=== PATIENT | male | born 1965 ===

== ENCOUNTER 2023-11-02 18:30 | Inpatient (IN) | payer BC, SELFPAY ==
--- NOTE | ~2023-11-02 | XR_ITS ---
EXAMINATION: XR CHEST CLINICAL INFORMATION: Hypoxia. COMPARISON: None available. TECHNIQUE: Frontal view of the chest was obtained. FINDINGS: Patchy airspace opacities in the left lung base with diffuse interstitial thickening. No pleural effusion or pneumothorax. Normal heart size. No acute osseous findings. XR/XR chest 1V IMPRESSION: Findings are most suggestive of an atypical infectious/inflammatory process with infiltrates in the left lung base. Recommend short-term follow-up.
--- NOTE | ~2023-11-02 | CT_ITS ---
EXAMINATION: CT ANGIOGRAM OF THE CHEST WITH AND WITHOUT CONTRAST (CT PULMONARY ANGIOGRAM FOR PE) CLINICAL INFORMATION: Reason for Exam Acute hypoxic COMPARISON: Chest x-ray from earlier the same day TECHNIQUE: Prior to contrast administration, noncontrast localization images were obtained. Subsequently, multidetector volumetric imaging was performed from the thoracic inlet to below the diaphragms following the administration of 65 mL Omnipaque 350 intravenous contrast. No contrast reaction reported Sagittal, coronal, and MIP oblique sagittal reformatted images were obtained on the CT workstation, uploaded to PACS, and reviewed. This CT examination was performed using dose optimization techniques as appropriate, variously including the following: *Automated exposure control *Adjustment of mA and/or kV according to patient size (this includes techniques or standardized protocols for targeted exams where dose is matched to indication/reason for exam; i.e. extremities or head) *Use of iterative reconstruction technique Total exam dose-length product 376 mGy-cm FINDINGS: QUALITY OF STUDY/CONTRAST BOLUS: Satisfactory. PULMONARY ARTERIES: No pulmonary emboli. THORACIC AORTA: No aneurysm. LUNG: Mild bronchial wall thickening, increased peribronchial attenuation, and nodular opacities seen throughout the lungs greatest at the lung bases. There is larger denser consolidation in the lower lobe. This probably represents bronchopneumonia. PLEURA: No pleural effusion or pneumothorax. MEDIASTINUM: Normal heart size. No pericardial effusion. [place] bilateral hilar and mediastinal lymphadenopathy. No enlarged hilar or mediastinal lymphadenopathy. No evidence of septal bowing or right heart strain. CORONARY ARTERY CALCIFICATION: Present but difficult to quantify due to motion artifact. CHEST WALL/AXILLA: No axillary or internal mammary lymphadenopathy. OSSEOUS STRUCTURES: No acute or suspicious osseous abnormality. UPPER ABDOMEN: Unremarkable. No reflux of contrast into the hepatic veins to suggest elevated right heart pressures. CT/CT angio chest PE protocol IMPRESSION: No evidence of pulmonary embolus. Bronchopneumonia, greatest in the left lower lobe. VTE: negative
[2023-11-02 18:35] VITALS: BP 139/62; PULSE 100; RESP 16; TEMP 37; O2SAT 89; BMI 27.9
--- NOTE | 2023-11-02 18:39 | ED.URI ---
HPI - URI/Sore Throat General Chief Complaint: Dyspnea Stated Complaint: fever, low o2 sat seen at UC Time Seen by Provider: 11/02/23 18:50 Source: patient Mode of arrival: ambulatory Limitations: no limitations History of Present Illness HPI Narrative: Patient history of hypertension coronary artery disease status post stents stent placement smoker quit smoking a month ago since then been coughing seen at Urgent care about 10 days ago prescribed inhaler COVID and flu was negative patient continued to cough went again noticed to be saturating 88% at room air patient coughing a lot in the nighttime denied any leg swelling or chest pain also patient had fever of 102 at home on arrival patient is saturating 89% at room air Related Data Home Medications Medication Instructions Recorded Confirmed aspirin 81 mg capsule 81 mg PO DAILY 11/03/23 11/03/23 atorvastatin 40 mg tablet 40 mg PO DAILY 11/03/23 11/03/23 lisinopril 10 mg tablet 10 mg PO DAILY 11/03/23 11/03/23 Previous Rx's Medication Instructions Recorded azithromycin 250 mg tablet 250 mg PO DAILY 4 days #4 tabs 11/04/23 benzonatate 100 mg capsule 100 mg PO TID PRN cough #20 caps 11/04/23 cefuroxime axetil 500 mg tablet 500 mg PO Q12H 6 days #12 tabs 11/04/23 Allergies Allergy/AdvReac Type Severity Reaction Status Date / Time No Known Allergies Allergy Verified 11/02/23 18:40 Review of Systems Review of Systems: Yes all other systems are reviewed and are negative PMFSH Past Medical History Medical History Hyperlipidemia CAD (coronary artery disease) Essential hypertension Social History Social History Household Members: Spouse Housing: House Do you presently have visiting nurse or other home services: No Patient Tobacco Use Status: Former Tobacco user Tobacco use type: Cigarette Smoked in Last 30 Days: Yes Patient Interested in Nicotine Replacement: No Patient Given Instructions on How to Stop Smoking: Yes Date Education Initiated: 11/03/23 Use of substances other than those prescribed or required for medical reasons: No Currently Displaying Signs/Symptoms of Drug Intoxication Withdrawal: No Advance Directives: No Advance Directives Information Provided: No Do you have thoughts of harming others: None Do you have a plan to hurt others: No Plan Recently lost weight without trying: No Nutrition Risks: No Nutritional Risk service: No Physical Exam Vital Signs: Vital Signs: Last Vital Signs Temp 97.9 F 11/04/23 07:24 Pulse 73 11/04/23 07:24 Resp 20 11/04/23 07:24 BP 99/66 11/04/23 07:24 Pulse Ox 91 L 11/04/23 07:24 O2 Del Method Room Air 11/04/23 07:24 O2 Flow Rate 3 11/03/23 07:35 BMI result Body Mass Index 27.9 Appearance: Alert. Oriented X3. No acute distress. Eyes: PERRLA, No Nystagmus ENT: Pharynx normal. Oral Mucosa moist Neck: Normal inspection. Neck supple. CVS: Normal heart rate and rhythm. Pulses normal. Respiratory: No respiratory distress. Equal air entry bilateral, bilateral prolonged expiration no rales Abdomen: Soft and nontender. Bowel sounds are present, no mass palpable, no CVA tenderness Skin: Skin warm and dry. Normal skin color. Normal skin turgor. Extremities: No lower extremity edema. No calf tenderness Neuro: Oriented X 3. No motor deficit. Course Course Course Narrative: This is a rapid medical exam: Additional HPI, ROS, PE not included below will be deferred to primary provider. From urgent care with concerns for hypoxia. SpO2 88% at urgent care. Pt reports that he recently quit smoking and is feeling better today compared to yesterday. Medications Administered Discontinued Medications Generic Name Dose Route Start Last Admin Trade Name Hilarioq PRN Reason Stop Dose Admin Albuterol Sulfate 5 mg 11/02/23 22:59 11/02/23 23:15 Albuterol Sulfate (0.083%) 2.5 Mg/3 Ml Vial.Neb INHALE 11/02/23 23:00 5 mg ONCE ONE Administration Albuterol/Ipratropium 3 ml 11/02/23 19:10 11/02/23 19:17 Albuterol/Iprat 2.5/0.5mg 3 Ml Ampul.Neb INHALE 11/02/23 19:11 3 ml ONCE ONE Administration Aspirin 81 mg 11/03/23 09:00 11/04/23 07:59 Aspirin Enteric Coated 81 Mg Tablet. PO 81 mg DAILY MIAN Administration Atorvastatin Calcium 40 mg 11/03/23 09:00 11/04/23 07:58 Atorvastatin Calcium 40 Mg Tablet PO 40 mg DAILY MIAN Administration Guaifenesin/Dextromethorphan 2 tab 11/03/23 09:00 11/04/23 07:58 Guaifenesin Dm 600/30 1 Tab Tab.Er.12h PO 2 tab BID MIAN Administration Heparin Sodium (Porcine) 5,000 unit 11/03/23 06:00 11/04/23 04:58 Heparin Sodium,Porcine 5,000 Unit/Ml Vial SUBCUT Not Given Q8H MIAN Ceftriaxone Sodium 1 gm/ 50 mls @ 100 mls/hr 11/02/23 20:54 11/02/23 21:50 Sodium Chloride IV 11/02/23 21:23 Infused ONCE ONE Infusion Azithromycin 500 mg/ Sodium 250 mls @ 125 mls/hr 11/02/23 22:59 11/03/23 01:20 Chloride IV 11/03/23 00:58 Infused ONCE ONE Infusion Azithromycin 500 mg/ Sodium 250 mls @ 125 mls/hr 11/03/23 21:00 11/03/23 23:05 Chloride IV Infused Q24H MIAN Infusion Ceftriaxone Sodium 1 gm/ 50 mls @ 100 mls/hr 11/03/23 20:00 11/03/23 21:00 Sodium Chloride IV Infused Q24H MIAN Infusion Iohexol 100 ml 11/02/23 21:45 11/02/23 21:46 Iohexol 350 Mg/Ml 100 Ml Infus..Btl IV 11/02/23 21:46 65 ml ONCE ONE Administration Lisinopril 10 mg 11/03/23 09:00 11/04/23 07:58 Lisinopril 10 Mg Tablet PO 10 mg DAILY MIAN Administration Protocol Sodium Chloride 3 ml 11/03/23 00:00 11/04/23 08:00 0.9 % Sodium Chloride Flush 3 Ml Syringe IVFLUSH 3 ml QSHIFT MIAN Administration Medical Decision Making Medical Decision Making [facility] Narrative: Patient chronic smoker with significant hypoxia and cough CTA negative for PE showed bilateral bronchopneumonia will admit patient for hypoxia and IV antibiotics Differential Diagnosis Differential Diagnoses: The differential diagnosis associated with the presentation includes Pulmonary embolism/pneumonia/pneumothorax/atypical pneumonia Admission/Observation Consideration of admission/observation: Escalation of care including admission/observation considered Consult Healthcare Provider Management of the patient was discussed with: Hospitalist Lab Data MDM Lab Attestation statement: I reviewed the patient's lab results. 11/03/23 10:48 11/03/23 10:48 Labs: Lab Results 11/02/23 11/02/23 Range/Units 19:12 19:13 WBC 18.6 H (4.8-10.8) X10*3/uL RBC 4.04 L (4.60-5.80) X10*6/uL Hgb 12.5 L (14.0-18.0) g/dl Hct 36.5 L (42.0-52.0) % MCV 90.3 (80.0-98.0) fL MCH 30.9 (27.0-33.0) pg MCHC 34.2 (31.0-36.0) g/dl RDW 12.9 (11.0-16.0) % Plt Count 257 (160-400) X10*3/uL MPV 9.8 (9.4-12.4) fL Immature Gran % (Auto) 0.7 H (0.0-0.4) % Neut % (Auto) 83.7 H (45-73) % Lymph % (Auto) 5.8 L (20-40) % [place] % (Auto) 9.5 (2-11) % Eos % (Auto) 0.1 (0-4) % Baso % (Auto) 0.2 (0-2) % Lymph # (Auto) 1.1 L (1.2-4.9) X10*3/uL [place] # (Auto) 1.8 H (0.1-1.2) X10*3/uL Eos # (Auto) 0.0 (0.0-0.4) X10*3/uL Baso # (Auto) 0.0 (0.0-0.2) X10*3/uL Abs Immat Gran (auto) 0.13 H (0.00-0.03) X10*3/uL Absolute Neuts (auto) 15.6 H (2.0-8.3) x10*3/uL Absolute Nucleated RBC 0.000 (0.0-0.012) X10*3/uL Nucleated RBC % (auto) 0.0 (0.0-0.2) /100WBC Smear Tech's Comments VERIFIED PT 14.5 H (11.1-13.3) SEC INR 1.2 H (0.9-1.1) D-Dimer High Sensitivty 353 NG/ML Sodium 134 L (135-145) mmol/L Potassium 4.0 (3.3-5.1) mmol/L Chloride 101 (96-108) mmol/L Carbon Dioxide 25 (22-29) mmol/L Anion Gap 12 (12-20) BUN 23 H (9-16) mg/dL Creatinine 1.08 (0.5-1.4) mg/dL Estim Creat Clear Calc 85.9 Estimated GFR > 60 Random Glucose 159 H (60-115) mg/dL Lactic Acid 0.9 (0.5-2.0) mmol/L Calcium 9.0 (8.4-10.2) mg/dL Magnesium 1.8 (1.6-2.6) mg/dL Total Bilirubin 0.5 (0.0-1.0) mg/dL AST 20 (5-37) U/L ALT 24 (0-40) U/L Alkaline Phosphatase 78 (39-117) U/L Troponin I High Sens 7.9 (<3.5-35.0) ng/L B-Natriuretic Peptide 14 (<100) pg/mL Total Protein 6.5 (6.5-8.0) g/dL Albumin 3.8 (3.5-5.0) g/dL Influenza Type A (PCR) NEGATIVE (Negative) Influenza Type B (PCR) NEGATIVE (Negative) RSV RNA Qual (PCR) NEGATIVE (Negative) SARS-CoV-2 RNA (RT-PCR) NEGATIVE (Negative) Independent Interpretation I performed an independent interpretation of an: EKG, Plain X-Ray and CT Scan Interpretation: Normal sinus rhythm heart rate 94 beats per minute normal interval normal axis no acute ST T wave changes Radiology Impression Discussion of test interpretation with radiology: I have reviewed the radiologist's reading. Critical Care Time Critical Care Time Critical Care Time: Yes Total Critical Care Time: 50 Attestation: The patient was critically ill with a high probability of imminent or life threatening deterioration. I spent greater than ?55??minutes of discontinuous time evaluating the patient,delivering critical care at the bedside, discussing and evaluating pertinent data with consultants. Critical care time does not include time spent performing separately billable procedures or teaching. Total time spent performing critical care was 50?minutes. Discharge Plan Discharge Clinical Impression: Bronchopneumonia, Hypoxic respiratory failure Patient Disposition: Admitted As Inpatient Interventions: Admission Worksheet (ED) Last Done: 11/03/23 07:41 Discharge Date/Time: 11/03/23 10:28
--- NOTE | 2023-11-02 18:41 | ECG_ITS ---
Test Reason : SOB Blood Pressure : / mmHG Vent. Rate : 094 BPM Atrial Rate : 094 BPM P-R Int : 124 ms QRS Dur : 098 ms QT Int : 352 ms P-R-T Axes : 081 043 047 degrees QTc Int : 440 ms Normal sinus rhythm Previous inferior infarct Abnormal ECG When compared with ECG of 08-SEP-2004 05:08, Vent. rate has increased BY [address] no longer elevated in Inferior leads ST no longer depressed in Anterior leads QT has lengthened Referred By: Aimee Whitlock Electronically Signed By:Rusty Pedraaz
--- NOTE | 2023-11-02 19:15 | PC.NURSE ---
pt afebrile nsr on monitor. does not meet sepsis criteria at this time. Dr. Madelin freire.
[2023-11-02] MEDS: Albuterol/Iprat 2.5/0.5MG 3 ML AMPUL.NEB INHALE (19:17)
[2023-11-02 19:18] VITALS: PULSE 85; RESP 16; O2SAT 92
[2023-11-02 19:32] LABS: Basophils Percent Auto 0.2 % (0-2); Eosinophils Percent Auto 0.1 % (0-4); Hematocrit 36.5 % (42.0-52.0); Hemoglobin 12.5 g/dl (14.0-18.0); Imm Gran Abs Auto 0.13 X10*3/uL (0.00-0.03); Imm Gran Pct Auto 0.7 % (0.0-0.4); Lymphocytes Absolute Auto 1.1 X10*3/uL (1.2-4.9); Lymphocytes Percent Auto 5.8 % (20-40); MANUAL DIFF FLAG SCAN; Mean Corpuscular HGB Conc 34.2 g/dl (31.0-36.0); Mean Corpuscular Hemoglobin 30.9 pg (27.0-33.0); Mean Corpuscular Volume 90.3 fL (80.0-98.0); Mean Platelet Volume 9.8 fL (9.4-12.4); Monocytes Absolute Auto 1.8 X10*3/uL (0.1-1.2); Monocytes Percent Auto 9.5 % (2-11); Neutrophils Absolute Auto 15.6 x10*3/uL (2.0-8.3); Neutrophils Percent Auto 83.7 % (45-73); Platelet Count 257 X10*3/uL (160-400); Red Blood Count 4.04 X10*6/uL (4.60-5.80); Red Cell Distribution Width 12.9 % (11.0-16.0); SCAN SMEAR FLAG 1; White Blood Count 18.6 X10*3/uL (4.8-10.8)
[2023-11-02 19:34] LABS: Lactic Acid 0.9 mmol/L (0.5-2.0)
[2023-11-02 19:37] LABS: INTERNATIONAL NORM RATIO 1.2 (0.9-1.1); Prothrombin Time 14.5 SEC (11.1-13.3)
[2023-11-02 19:39] LABS: Alanine Aminotransferase 24 U/L (0-40); Albumin Level 3.8 g/dL (3.5-5.0); Alkaline Phosphatase 78 U/L (39-117); Anion Gap 12 (12-20); Aspartate Amino Transferase 20 U/L (5-37); Bilirubin Total 0.5 mg/dL (0.0-1.0); Blood Urea Nitrogen 23 mg/dL (9-16); Carbon Dioxide 25 mmol/L (22-29); Chloride 101 mmol/L (96-108); Creatinine Clr Calc Pharmacy 85.9; D Dimer High Sensitivity 353 NG/ML; Estimated Glomerular Filt Rate > 60; Glucose Random 159 mg/dL (60-115); Magnesium 1.8 mg/dL (1.6-2.6); Sodium 134 mmol/L (135-145); Total Protein 6.5 g/dL (6.5-8.0)
[2023-11-02 19:43] LABS: B Type Natriuretic Peptide 14 pg/mL (<100)
[2023-11-02 19:46] LABS: Troponin-I High Sensitivity 7.9 ng/L (<3.5-35.0)
[2023-11-02 19:51] LABS: SLIDE REVIEW VERIFIED
[2023-11-02 19:59] LABS: Influenza A PCR NEGATIVE (Negative); Influenza B PCR NEGATIVE (Negative); Resp Syncy Virus RNA Qual PCR NEGATIVE (Negative); SARS COV2 PCR INHOUSE NEGATIVE (Negative)
[2023-11-02 20:26] VITALS: BP 111/60; PULSE 95; RESP 20; TEMP 37.3; O2SAT 93
[2023-11-02] MEDS: cefTRIAXone sodium 1 GM in 0.9 % Sodium Chloride 50 ML IV (21:16)
[2023-11-02] MEDS: iohexoL 350 MG/ML 100 ML INFUS..BTL IV (21:46)
[2023-11-02 22:30] VITALS: BP 137/64; PULSE 87; RESP 22; TEMP 37.7; O2SAT 92
[2023-11-02] MEDS: Albuterol Sulfate (0.083%) 2.5 MG/3 ML VIAL.NEB 5 MG INHALE (23:15)
[2023-11-02 23:16] VITALS: PULSE 85; RESP 20; O2SAT 95
[2023-11-02] MEDS: Azithromycin 500 MG in 0.9 % Sodium Chloride 250 ML 125 MG IV (23:17)
--- NOTE | 2023-11-03 01:08 | P.HPHOSP_ITS ---
History of Present Illness Date of Service: 11/02/23 Attending physician on admission: Denise Chavez Chief Complaint: Cough Josemanuel Carrillo is a 58 years old man with past medical history significant for hypertension, hyperlipidemia and CAD (status post cardiac stenting) presents to the emergency department complaining of dry cough that has been going on for the last 2 weeks. On Oct 25 he seek medical attention and was prescribed with prednisone, tessalon and albuterol inhaler. He only took only 1 pill of prednisone. His cough is persisting and has developed worsening shortness on breath and fever. He was noted to have low oxygen saturation at urgent care. He did not report any headache, palpitations or dizziness. He denied any acute gastrointestinal or genitourinary symptoms. Denied edema to the lower extremities. He has been a tobacco smoker for the last 45 years, however quit recently (about a month ago). He denied alcohol abuse, marijuana smoking or illicit drug use. In the ED, patient was found to have tachypnea. His last temperature is 99.8 degrees. Blood pressure is normal. His oxygen saturation is 92% and requiring 3 L/min of supplemental oxygen. Blood workup was remarkable for leukocytosis, 18.6. There are no significant electrolyte imbalances. There is no lactic acidosis. Troponin, BNP and LFTs are normal. ED tx: DuoNeb, ceftriaxone 1 g IV, azithromycin 500 mg IV, albuterol neb Review of Systems 2 Review of Systems: All 12 systems were reviewed and normal except as noted in HPI. [facility] Medical History (Updated 11/03/23 @ 01:30 by Denise Chavez MD) Hyperlipidemia CAD (coronary artery disease) Essential hypertension Social History Smoked in Last 30 Days: Yes Use of substances other than those prescribed or required for medical reasons: No Advance Directives: No Advance Directives Information Provided: No Meds Allergies Allergy/AdvReac Type Severity Reaction Status Date / Time No Known Allergies Allergy Verified 11/02/23 18:40 Active Medications: Current Medications Albuterol/Ipratropium (Albuterol/Iprat 2.5/0.5mg 3 Ml Ampul.Neb) 3 ml INHALE Q4H PRN PRN Reason: Shortness of Breath/Wheezing Guaifenesin/Dextromethorphan (Guaifenesin Dm 600/30 1 Tab Tab.Er.12h) 2 tab PO BID MIAN Heparin Sodium (Porcine) (Heparin Sodium,Porcine 5,000 Unit/Ml Vial) 5,000 unit SUBCUT Q8H [facility] Azithromycin 500 mg/ Sodium (Chloride) 250 mls @ 125 mls/hr IV Q24H [facility] Ceftriaxone Sodium 1 gm/ (Sodium Chloride) 50 mls @ 100 mls/hr IV Q24H [facility] Sodium Chloride (0.9 % Sodium Chloride Flush 3 Ml Syringe) 3 ml IVFLUSH QSHIFT [facility] Home Medications Medication Instructions Recorded Confirmed Last Taken Type atorvastatin 40 mg tablet 40 mg PO DAILY 11/03/23 11/03/23 Unknown History lisinopril 10 mg tablet 10 mg PO DAILY 11/03/23 11/03/23 Unknown History Physical Exam 2 Vital Signs and Narrative: Vital Signs: Last Vital Signs Temp 99.8 F 11/02/23 22:30 Pulse 85 11/02/23 23:16 Resp 20 11/02/23 23:16 BP 137/64 11/02/23 22:30 Pulse Ox 92 11/02/23 22:30 O2 Del Method Nasal Cannula 11/02/23 22:30 O2 Flow Rate 2 11/02/23 22:30 BMI result Body Mass Index 27.9 Constitutional - Awake and Alert, No apparent distress. Nasal cannula in place. Cooperative. HEENT - normocephalic. Atraumatic. Normal sclerae. Heart - regular rate and rhythm. No murmurs. Lungs - Normal lung expansion, Normal respiratory effort, tachypnea. Bilateral rhonchi. No wheezing. No crackles. Abdomen - No tenderness. Extremities - no calf tenderness bilaterally, no swelling Musculoskeletal - Normal inspection, normal ROM Skin - Warm/Dry Neurological - Alert & oriented x3. No focal weakness grossly noted. Normal speech. Psychological - Appropriate affect Results Labs 11/02/23 19:12 11/02/23 19:12 Labs: Laboratory Results - last 24 hr 11/02/23 11/02/23 19:12 19:13 MCV 90.3 MCH 30.9 MCHC 34.2 RDW 12.9 Plt Count 257 MPV 9.8 Immature Gran % (Auto) 0.7 H Neut % (Auto) 83.7 H Lymph % (Auto) 5.8 L [place] % (Auto) 9.5 Eos % (Auto) 0.1 Baso % (Auto) 0.2 Lymph # (Auto) 1.1 L [place] # (Auto) 1.8 H Eos # (Auto) 0.0 Baso # (Auto) 0.0 Abs Immat Gran (auto) 0.13 H Absolute Neuts (auto) 15.6 H Absolute Nucleated RBC 0.000 Nucleated RBC % (auto) 0.0 Smear Tech's Comments VERIFIED PT 14.5 H INR 1.2 H D-Dimer High Sensitivty 353 Anion Gap 12 Estim Creat Clear Calc 85.9 Estimated GFR > 60 Random Glucose 159 H Lactic Acid 0.9 Calcium 9.0 Magnesium 1.8 Total Bilirubin 0.5 AST 20 ALT 24 Alkaline Phosphatase 78 Troponin I High Sens 7.9 B-Natriuretic Peptide 14 Total Protein 6.5 Albumin 3.8 Influenza Type A (PCR) NEGATIVE Influenza Type B (PCR) NEGATIVE RSV RNA Qual (PCR) NEGATIVE SARS-CoV-2 RNA (RT-PCR) NEGATIVE ECG Attestation: I personally reviewed and interpreted this ECG as follows: (Normal sinus rhythm, heart rate 94 bpm. No acute ischemic changes.) Imaging Radiologist's Impressions: Impressions Chest X-Ray 11/02/23 19:10 IMPRESSION: Findings are most suggestive of an atypical infectious/inflammatory process with infiltrates in the left lung base. Recommend short-term follow-up. Chest CTA 11/02/23 21:50 IMPRESSION: No evidence of pulmonary embolus. Bronchopneumonia, greatest in the left lower lobe. VTE: negative Assessment and Plan (1) Hypoxic respiratory failure: Qualifiers: Chronicity: acute Qualified Code(s): J96.01 - Acute respiratory failure with hypoxia Status: Acute (2) Bronchopneumonia: Status: Acute (3) Essential hypertension: Status: Acute (4) CAD (coronary artery disease): Qualifiers: Coronary Disease-Associated Artery/Lesion type: unspecified vessel or lesion type [place] vs. transplanted heart: unspecified whether [place] or transplanted heart Associated angina: without angina Qualified Code(s): I25.10 - Atherosclerotic heart disease of [place] coronary artery without angina pectoris Status: Acute (5) Hyperlipidemia: Qualifiers: Hyperlipidemia type: unspecified Qualified Code(s): E78.5 - Hyperlipidemia, unspecified Status: Acute Plan Josemanuel Carrillo is a 58 years old man admitted with: * Acute hypoxic respiratory failure secondary to bronchopneumonia. Admit to hospitalist service. Telemetry. Pulse oximetry. Continue supplemental oxygen to keep oxygen saturation above 90%. Bronchodilator therapy as needed. Continue empiric IV antibiotic therapy with ceftriaxone and azithromycin. * Hyperlipidemia. Continue statin. * Essential hypertension. Continue lisinopril. * CAD s/p cardiac stenting. Continue atorvastatin and aspirin. Code status: Full DVT prophylaxis: Heparin subcut Patient will need hospitalization for at least 2 midnight for hypoxic respiratory failure secondary to bronchopneumonia treatment with supplemental oxygen, bronchodilator therapy and empiric IV antibiotic therapy. Quality Stroke Does the patient have a stroke diagnosis?: No VTE Prior VTE?: No VTE Risk Level:: Medical - moderate - high VTE Device Contraindication: Treatment Not Indicated VTE Drug Contraindication: N/A - Med Ordered
[2023-11-03 06:06] VITALS: BP 140/61; PULSE 77; RESP 13; TEMP 36.8; O2SAT 94
[2023-11-03 07:35] VITALS: BP 137/64; PULSE 89; RESP 18; TEMP 37.3; O2SAT 92
--- NOTE | 2023-11-03 08:14 | PHA.MEDREC ---
Pharmacy Consult ? Medication Reconciliation Pharmacy has completed the medication reconciliation. Confirmed medications with patient. Reports that he didn't finish taking prescribed Prednisone.
--- NOTE | 2023-11-03 08:18 | PHA.MEDREC ---
Pharmacy Consult ? Medication Reconciliation Pharmacy has completed the medication reconciliation. Confirmed medications with patient. Reports that he did not finish taking prescribed Prednisone and is no longer using Benzonatate or albuterol inhaler.
--- NOTE | 2023-11-03 08:36 | PHA.MEDREC ---
Pharmacy Consult ? Medication Reconciliation Pharmacy has completed the medication reconciliation. Spoke to patient and confirmed medication list.
[2023-11-03] MEDS: Atorvastatin Calcium 40 MG TABLET PO (08:43)
[2023-11-03] MEDS: lisinopriL 10 MG TABLET PO (08:43)
[2023-11-03] MEDS: Aspirin Enteric Coated 81 MG TABLET.DR PO (08:43)
[2023-11-03] MEDS: 0.9 % Sodium Chloride Flush 3 ML SYRINGE IVFLUSH ×2 (08:43→20:29)
[2023-11-03] MEDS: guaiFENesin DM 600/30 1 TAB TAB.ER.12H 2 TAB PO ×2 (09:57→20:30)
[2023-11-03 10:34] VITALS: BP 154/68; PULSE 75; RESP 20; TEMP 37.2; O2SAT 93; BMI 26.7
[2023-11-03 10:56] LABS: Basophils Percent Auto 0.2 % (0-2); Eosinophils Percent Auto 0.2 % (0-4); Hematocrit 34.3 % (42.0-52.0); Hemoglobin 11.7 g/dl (14.0-18.0); Imm Gran Abs Auto 0.06 X10*3/uL (0.00-0.03); Imm Gran Pct Auto 0.5 % (0.0-0.4); Lymphocytes Absolute Auto 1.5 X10*3/uL (1.2-4.9); MANUAL DIFF FLAG SCAN; Mean Corpuscular HGB Conc 34.1 g/dl (31.0-36.0); Mean Corpuscular Hemoglobin 31.5 pg (27.0-33.0); Mean Corpuscular Volume 92.2 fL (80.0-98.0); Mean Platelet Volume 9.5 fL (9.4-12.4); Monocytes Absolute Auto 1.6 X10*3/uL (0.1-1.2); Monocytes Percent Auto 12.8 % (2-11); Neutrophils Absolute Auto 9.2 x10*3/uL (2.0-8.3); Neutrophils Percent Auto 74.3 % (45-73); Platelet Count 234 X10*3/uL (160-400); Red Blood Count 3.72 X10*6/uL (4.60-5.80); Red Cell Distribution Width 13.2 % (11.0-16.0); SCAN SMEAR FLAG 1; White Blood Count 12.4 X10*3/uL (4.8-10.8)
[2023-11-03 11:09] LABS: Anion Gap 9 (12-20); Blood Urea Nitrogen 14 mg/dL (9-16); Calcium 9.7 mg/dL (8.4-10.2); Carbon Dioxide 27 mmol/L (22-29); Chloride 103 mmol/L (96-108); Creatinine Clr Calc Pharmacy 107.1; Estimated Glomerular Filt Rate > 60; Glucose Random 104 mg/dL (60-115); Sodium 135 mmol/L (135-145)
[2023-11-03 11:17] LABS: SLIDE REVIEW VERIFIED
--- NOTE | 2023-11-03 11:50 | MHC.CM.PN ---
Pt self-care, lives at home with his who will transport. Pt declined to complete a HCP when offered. PCP: Dr. Christy Sierra
--- NOTE | 2023-11-03 12:31 | HO.PM.IMPN ---
Subjective Subjective Date of Service: 11/03/23 Interval History: seen and examined this morning follow up for pneumonia no sob, persistent cough, still requiring oxygen Review of Systems Review of Systems: Yes all other systems are reviewed and are negative Constitutional Constitutional: Denies chills and Denies fever(s) Cardiovascular Cardiovascular: Denies chest pain and Denies palpitations Respiratory Respiratory: Reports cough Endocrine Endocrine: Denies palpitations Physical Exam Vital Signs: Vital Signs: Last Vital Signs Temp 98.9 F 11/03/23 10:34 Pulse 75 11/03/23 10:34 Resp 20 11/03/23 10:34 BP 154/68 H 11/03/23 10:34 Pulse Ox 93 11/03/23 10:34 O2 Del Method Room Air 11/03/23 10:34 O2 Flow Rate 3 11/03/23 07:35 BMI result Body Mass Index 26.7 Const: General: cooperative, comfortable, no acute distress, alert and awake Nutritional Appearance: average body habitus Orientation/consciousness: patient oriented x3 Resp: Other: few crackles left side Effort & Inspection: normal respiratory effort, able to speak in complete sentences, no respiratory distress and no use of accessory muscles GI: Inspection: No distended Palpation (GI): Soft to palpation and nontender Neuro: General: patient oriented x3 and moves all extremities Extrem: General: Yes no pedal edema Psych: Appearance: grossly normal Affect: normal affect Objective Data Active Medications Albuterol/Ipratropium (Albuterol/Iprat 2.5/0.5mg 3 Ml Ampul.Neb) 3 ml INHALE Q4H PRN PRN Reason: Shortness of Breath/Wheezing Aspirin (Aspirin Enteric Coated 81 Mg Tablet.) 81 mg PO DAILY [facility] Last Admin: 11/03/23 08:43 Dose: 81 mg Documented By: NORY Atorvastatin Calcium (Atorvastatin Calcium 40 Mg Tablet) 40 mg PO DAILY [facility] Last Admin: 11/03/23 08:43 Dose: 40 mg Documented By: NORY Guaifenesin/Dextromethorphan (Guaifenesin Dm 600/30 1 Tab Tab.Er.12h) 2 tab PO BID [facility] Last Admin: 11/03/23 09:57 Dose: 2 tab Documented By: NORY Heparin Sodium (Porcine) (Heparin Sodium,Porcine 5,000 Unit/Ml Vial) 5,000 unit SUBCUT Q8H [facility] Last Admin: 11/03/23 07:08 Dose: Not Given Documented By: JACOB Non-Admin Reason: Patient Refused Azithromycin 500 mg/ Sodium (Chloride) 250 mls @ 125 mls/hr IV Q24H [facility] Ceftriaxone Sodium 1 gm/ (Sodium Chloride) 50 mls @ 100 mls/hr IV Q24H [facility] Lisinopril (Lisinopril 10 Mg Tablet) 10 mg PO DAILY [facility]; Protocol Last Admin: 11/03/23 08:43 Dose: 10 mg Documented By: NORY Sodium Chloride (0.9 % Sodium Chloride Flush 3 Ml Syringe) 3 ml IVFLUSH QSHIFT [facility] Last Admin: 11/03/23 08:43 Dose: 3 ml Documented By: NORY Labs 11/03/23 10:48 11/03/23 10:48 Labs: Laboratory Results - last 24 hr 11/02/23 11/02/23 11/03/23 19:12 19:13 10:48 MCV 90.3 92.2 MCH 30.9 31.5 MCHC 34.2 34.1 RDW 12.9 13.2 Plt Count 257 234 MPV 9.8 9.5 Immature Gran % (Auto) 0.7 H 0.5 H Neut % (Auto) 83.7 H 74.3 H Lymph % (Auto) 5.8 L 12.0 L [place] % (Auto) 9.5 12.8 H Eos % (Auto) 0.1 0.2 Baso % (Auto) 0.2 0.2 Lymph # (Auto) 1.1 L 1.5 [place] # (Auto) 1.8 H 1.6 H Eos # (Auto) 0.0 0.0 Baso # (Auto) 0.0 0.0 Abs Immat Gran (auto) 0.13 H 0.06 H Absolute Neuts (auto) 15.6 H 9.2 H Absolute Nucleated RBC 0.000 0.000 Nucleated RBC % (auto) 0.0 0.0 Smear Tech's Comments VERIFIED VERIFIED PT 14.5 H INR 1.2 H D-Dimer High Sensitivty 353 Anion Gap 12 9 L Estim Creat Clear Calc 85.9 107.1 Estimated GFR > 60 > 60 Random Glucose 159 H 104 Lactic Acid 0.9 Calcium 9.0 9.7 D Magnesium 1.8 Total Bilirubin 0.5 AST 20 ALT 24 Alkaline Phosphatase 78 Troponin I High Sens 7.9 B-Natriuretic Peptide 14 Total Protein 6.5 Albumin 3.8 Influenza Type A (PCR) NEGATIVE Influenza Type B (PCR) NEGATIVE RSV RNA Qual (PCR) NEGATIVE SARS-CoV-2 RNA (RT-PCR) NEGATIVE Assessment and Plan (1) Bronchopneumonia: Status: Acute (2) Hypoxic respiratory failure: Status: Acute Plan This is a 58 year old male with history of CAD who presents to the ED with sob found to have pneumonia Acute hypoxic respiratory failure secondary to bronchopneumonia afebrile, white count trending down flu, RSV, covid negative Continue supplemental oxygen to keep oxygen saturation above 90%, wean as tolerated Continue IV antibiotic therapy with ceftriaxone and azithromycin, started 3/ blood cultures pending Hyperlipidemia. Continue statin. Essential hypertension. Continue lisinopril. CAD s/p cardiac stenting. Continue atorvastatin and aspirin. Code status: Full DVT prophylaxis: Heparin subcut Patient will need hospitalization for at least 2 midnight for hypoxic respiratory failure secondary to bronchopneumonia treatment with supplemental oxygen, bronchodilator therapy and empiric IV antibiotic therapy. Quality Stroke Does the patient have a stroke diagnosis?: No VTE Prior VTE?: No VTE Risk Level:: Medical - moderate - high VTE Device Contraindication: Treatment Not Indicated VTE Drug Contraindication: N/A - Med Ordered
--- NOTE | 2023-11-03 14:18 | P.CDIM_ITS ---
PROVIDER RESPONSE TEXT: To clarify, the appropriate diagnosis supported by the clinical indicators: Sepsis QUERY TEXT: PHYSICIAN'S DOCUMENTATION REQUEST Date of Query: 11/03/2023 01:47 PM EST Patient Name: Josemanuel Carrillo Admit Date: 11/03/2023 Dear Marry Alexandra, A review of the medical record indicates additional documentation may be needed. Please review below and update the documentation accordingly. Clinical Indicators: WBC 18.6 P 100 R 22 LA 0.9 IV Azithromycin, IV Ceftriaxone for treatment of Bronchopneumonia Please clarify which, if any, of the following is the most likely etiology of the above symptoms and treatment rendered: Sepsis Localized infection only, without systemic illness Other (explain) Clinically unable to determine (explain) Thank you, Matilde Lynn RN Use of terms such as suspected, likely, concern for, or probable (associated with a specific diagnosi s that is being evaluated, monitored, or treated as if it exists) are acceptable and can be coded in the inpatient se tting, when documented at the time of discharge. Please use your independent medical judgment in providing your response. THIS QUERY IS PART OF THE PERMANENT MEDICAL RECORD
[2023-11-03 15:26] VITALS: BP 126/65; PULSE 82; RESP 18; TEMP 36.8; O2SAT 92
[2023-11-03 19:23] VITALS: BP 126/68; PULSE 77; RESP 16; TEMP 36.7; O2SAT 93
[2023-11-03] MEDS: cefTRIAXone sodium 1 GM in 0.9 % Sodium Chloride 50 ML IV (20:30)
[2023-11-03] MEDS: Azithromycin 500 MG in 0.9 % Sodium Chloride 250 ML 125 MG IV (21:05)
[2023-11-03 23:59] VITALS: BP 129/62; PULSE 78; RESP 20; TEMP 36.5; O2SAT 93
[2023-11-04 03:17] VITALS: BP 129/65; PULSE 74; RESP 20; TEMP 36.2; O2SAT 93
[2023-11-04 07:24] VITALS: BP 99/66; PULSE 73; RESP 20; TEMP 36.6; O2SAT 91
[2023-11-04] MEDS: lisinopriL 10 MG TABLET PO (07:58)
[2023-11-04] MEDS: Atorvastatin Calcium 40 MG TABLET PO (07:58)
[2023-11-04] MEDS: guaiFENesin DM 600/30 1 TAB TAB.ER.12H 2 TAB PO (07:58)
[2023-11-04] MEDS: Aspirin Enteric Coated 81 MG TABLET.DR PO (07:59)
[2023-11-04] MEDS: 0.9 % Sodium Chloride Flush 3 ML SYRINGE IVFLUSH (08:00)
--- NOTE | 2023-11-04 10:57 | PM.DS ---
DS: Providers Provider Date of Service: 11/04/23 Date of admission: 11/02/23 23:37 Date of discharge: 11/04/23 Primary care physician: Christy Sierra MD Attending physician on discharge: Jose Link Discharging clinician: Marry Alexandra DS: Diagnosis Discharge Diagnosis (1) Bronchopneumonia: Status: Acute (2) Hypoxic respiratory failure: Status: Acute DS: Summary Hospital Course Hospital Course: From H&P on the day of admission Josemanuel Carrillo is a 58 years old man with past medical history significant for hypertension, hyperlipidemia and CAD (status post cardiac stenting) presents to the emergency department complaining of dry cough that has been going on for the last 2 weeks. On Oct 25 he seek medical attention and was prescribed with prednisone, tessalon and albuterol inhaler. He only took only 1 pill of prednisone. His cough is persisting and has developed worsening shortness on breath and fever. He was noted to have low oxygen saturation at urgent care. He did not report any headache, palpitations or dizziness. He denied any acute gastrointestinal or genitourinary symptoms. Denied edema to the lower extremities. He has been a tobacco smoker for the last 45 years, however quit recently (about a month ago). He denied alcohol abuse, marijuana smoking or illicit drug use. In the ED, patient was found to have tachypnea. His last temperature is 99.8 degrees. Blood pressure is normal. His oxygen saturation is 92% and requiring 3 L/min of supplemental oxygen. Blood workup was remarkable for leukocytosis, 18.6. There are no significant electrolyte imbalances. There is no lactic acidosis. Troponin, BNP and LFTs are normal. ED tx: DuoNeb, ceftriaxone 1 g IV, azithromycin 500 mg IV, albuterol neb Acute hypoxic respiratory failure secondary/sepsis due to bronchopneumonia Initinally had white cound of 18.6, one episodeof tachycardia with HR of 100. He was initially hypoxic with oxygen saturation of 89% on room air. CT showed evidence of bronchopneumonia and he was treated with IV antibiotics. Flu, RSV, COVID test were negative. He was admitted to the hospital for supplemental oxygen and IV antibiotics. His white count is trending down, his breathing has improved significantly and he has been able to be weaned off of supplemental oxygen and has been able to ambulate without shortness of breath. Blood cultures have remained negative for 24 hours. Patient feels well and is eager to return home. Time Attestation Discharge Coordination Time (in mins): 36 Quality: Safe Use of Opioids Does Pt have an Active Cancer Diagnosis on the Problem List?: No Quality: Stroke Does the patient have a stroke diagnosis?: No Physical Exam Vital Signs: Vital Signs: Last Vital Signs Temp 97.9 F 11/04/23 07:24 Pulse 73 11/04/23 07:24 Resp 20 11/04/23 07:24 BP 99/66 11/04/23 07:24 Pulse Ox 91 L 11/04/23 07:24 O2 Del Method Room Air 11/04/23 07:24 O2 Flow Rate 3 11/03/23 07:35 BMI result Body Mass Index 26.7 Const: General: cooperative, comfortable, no acute distress, alert and awake Nutritional Appearance: average body habitus Orientation/consciousness: patient oriented x3 Resp: Effort & Inspection: normal respiratory effort, able to speak in complete sentences, no respiratory distress and no use of accessory muscles Auscultation: clear to auscultation bilaterally Cardio: Rate: regular rate GI: Inspection: No distended Palpation (GI): Soft to palpation and nontender Neuro: General: patient oriented x3, moves all extremities and CN's II-XI intact bilaterally Extrem: General: Yes no pedal edema Psych: Appearance: grossly normal Affect: normal affect DS: Data Data Completed and Pending Labs on day of discharge: Laboratory Results - last 24 hr 11/03/23 10:48 WBC 12.4 H RBC 3.72 L Hgb 11.7 L Hct 34.3 L MCV 92.2 MCH 31.5 MCHC 34.1 RDW 13.2 Plt Count 234 MPV 9.5 Immature Gran % (Auto) 0.5 H Neut % (Auto) 74.3 H Lymph % (Auto) 12.0 L [place] % (Auto) 12.8 H Eos % (Auto) 0.2 Baso % (Auto) 0.2 Lymph # (Auto) 1.5 [place] # (Auto) 1.6 H Eos # (Auto) 0.0 Baso # (Auto) 0.0 Abs Immat Gran (auto) 0.06 H Absolute Neuts (auto) 9.2 H Absolute Nucleated RBC 0.000 Nucleated RBC % (auto) 0.0 Smear Tech's Comments VERIFIED Sodium 135 Potassium 4.0 Chloride 103 Carbon Dioxide 27 Anion Gap 9 L BUN 14 Creatinine 0.80 Estim Creat Clear Calc 107.1 Estimated GFR > 60 Random Glucose 104 Calcium 9.7 D Preliminary micro results at discharge 11/02/23 20:24 Blood Culture - Preliminary Blood - Venous No growth after 24 hours. 11/02/23 20:12 Blood Culture - Preliminary Blood - Venous No growth after 24 hours. Discharge Plan Discharge Anticipated Discharge Date/Time: 11/04/23 11:07 Patient Disposition: Home, Self-Care Discharge Diagnosis: pneumonia Referrals: Christy Sierra MD [Primary Care Provider] - 1 Week Discharge Medications: New cefuroxime axetil 500 mg tablet 500 mg PO Q12H 6 Days Qty: 12 0RF benzonatate 100 mg capsule 100 mg PO TID PRN (Reason: cough) Qty: 20 0RF azithromycin 250 mg tablet 250 mg PO DAILY 4 Days Qty: 4 0RF Continued atorvastatin 40 mg tablet 40 mg PO DAILY lisinopril 10 mg tablet 10 mg PO DAILY aspirin 81 mg Capsule 81 mg PO DAILY Discharge Orders: Discharge Order (Routine); Ordered 11/04/23 Ordered By: Marry Alexandra Activity on Discharge: As tolerated Stand Alone Forms: Patient Portal Discharge page Care Plan Goals: see below Health Concerns: pneumonia Plan of Treatment: complete course of antibiotics as prescribed Call to schedule follow-up appointment with your PCP Return to the hospital with any new or worsening symptoms Assessment: see discharge summary
--- NOTE | 2023-11-04 11:16 | MHC.CM.PN ---
Pt is medically cleared for D/C home self-care, pts to transport him home.
== END 2023-11-04 12:56 | disposition home or self-care (01) | DRG 720 ==
LOC: HO.ED 11-03 01:57 → HO.EDOVER 11-03 03:44 → HO.IMC 11-03 07:13
PROVIDERS: Nurse Practitioner Family; Admitting Provider Internal Medicine; Emergency Provider Internal Medicine; PCP Internal Medicine; Visit Provider Physician Assistant Medical
DX: A41.9 Sepsis, unspecified organism (principal); J96.01 Acute respiratory failure with hypoxia; J18.0 Bronchopneumonia, unspecified organism; E78.5 Hyperlipidemia, unspecified; I25.10 Atherosclerotic heart disease of native coronary artery without angina pectoris; Z20.822 Contact with and (suspected) exposure to COVID-19; Z95.5 Presence of coronary angioplasty implant and graft; Z87.891 Personal history of nicotine dependence; Z79.82 Long term (current) use of aspirin; Z79.899 Other long term (current) drug therapy
CPT/HCPCS: 0241U; 36415; 71045; 71275; 80048; 80053; 83605; 83735; 83880; 84484; 85025; 85379; 85610; 87040; 93005; 94640; 99285; J0456; J0696; Q9967

== ENCOUNTER → 2023-11-02 18:41 | Outpatient (BNV) | payer BC, SELFPAY | PROVIDERS: Admitting Provider Internal Medicine; Emergency Provider Internal Medicine; PCP Internal Medicine; Visit Provider Internal Medicine Cardiovascular Disease | DX: R94.31 Abnormal electrocardiogram [ECG] [EKG] (principal) | CPT/HCPCS: 93010 ==

== ENCOUNTER → 2023-11-02 18:54 | Outpatient (BNV) | payer BC, SELFPAY | PROVIDERS: Emergency Provider Internal Medicine; PCP Internal Medicine; Visit Provider Internal Medicine | DX: J96.01 Acute respiratory failure with hypoxia (principal); J18.0 Bronchopneumonia, unspecified organism | CPT/HCPCS: 99223; 99239; 99499 ==

== ENCOUNTER 2024-02-29 12:30 | Outpatient (AMB) | payer BC, SELFPAY ==
[2024-02-29 12:34] VITALS: BP 160/64; PULSE 67; BMI 28.1
--- NOTE | 2024-02-29 12:34 | A.OFFVIS_ITS ---
Vital Signs 02/29/24 12:34 Height 5 ft 11 in Weight 201 lb 8.04 oz BMI 28.1 BP 160/64 H Blood Pressure Location Rt brachial Position Sitting Pulse 67 Pulse Source Pulse Oximeter Intake Visit Reasons: [employer]/Dr. 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 He states he has had 2 cardiac catheterizations around 15 years ago and 20 years ago. Seems like he has had premature CAD in his late 30s. Apparently saw Dr. 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 Overall, generally feels okay. No clear-cut anginal-type complaints. Whenever he is walking uphill extra, can feel exhausted. Some palpitations off and on. Today's blood pressure is high but he states he is generally very well controlled. He wants to undergo further evaluation. [facility] Medical History (Updated 02/29/24 @ 12:55 by Ty Booker MD) Hyperlipidemia CAD (coronary artery disease) Essential hypertension Family History (Updated 02/29/24 @ 12:39 by Josefina Ellison CMA) Mother Stented coronary artery Brother Heart attack Social History Household Members: Spouse Housing: House Do you presently have visiting nurse or other home services: No Patient Tobacco Use Status: Former Tobacco user Tobacco use type: Cigarette service: No Review of Systems Const All systems reviewed & are unremarkable except as noted in HPI and below Reports as per HPI and Reports no additional complaints Eyes Reports as per HPI and Denies no additional complaints ENT Denies no additional complaints and Reports as per HPI Card Reports as per HPI, Reports no additional complaints, Denies acrocyanosis, Denies chest pain, Denies leg edema, Denies lightheadedness, Denies palpitations and Denies dyspnea Resp Reports as per HPI, Denies no additional complaints and Denies dyspnea GI Reports as per HPI and Denies no additional complaints Reports no additional complaints and Reports as per HPI Musc Reports no additional complaints and Reports as per [employer] [employer] [facility] Skin/Breast Reports system reviewed and no additional complaints, except as documented Neuro Reports no additional complaints and Reports as per HPI Psych Reports no additional complaints and Reports as per HPI Endo Reports no additional complaints, Reports as per HPI and Denies palpitations Gus/Lymph Reports no additional complaints and Reports as per HPI Aller/Immun Reports no additional complaints and Reports as per HPI Physical Exam Vital Signs: Last Vital Signs Pulse 67 02/29/24 12:34 BP 160/64 H 02/29/24 12:34 BMI result Body Mass Index 28.1 Const General: comfortable and no acute distress Orientation/consciousness: patient oriented x3 HEENT Other: Unremarkable Head: Yes normal to inspection Neck Neck: Yes normal visual inspection Chest Chest palpation & inspection: normal inspection of the chest Resp Auscultation: clear to auscultation bilaterally Cardio Palpation: normal PMI Heart sounds: S1 normal heart sound present, S2 normal heart sound present, no gallops, no murmurs and no rubs GI Palpation (GI): Soft to palpation Back/Spine/Pelvis Other: unremarkable Skin General skin exam: no rashes or lesions noted Neuro General: patient oriented x3 Extrem General: Yes normal to inspection Psych Mental Status: mental status grossly normal Assessment & Plan Assessment & Plan (1) CAD (coronary artery disease): Code(s): I25.10 - Atherosclerotic heart disease of [place] coronary artery without angina pectoris Category: Medical Qualifiers: Associated angina: without angina Coronary Disease-Associated A rtery/Lesion type: unspecified vessel or lesion type [place] vs. transplanted heart: unspecified whether [place] or transplanted heart Qualified Code(s): I25.10 - Atherosclerotic heart disease of [place] coronary artery without angina pectoris Plan: In the recent EKG, underlying rhythm is sinus at 94/Min; old inferior infarct but otherwise unremarkable. Possible prior inferior infarct overall. As he has not had any cardiac workup in many years, we can check an echocardiogram for cardiac function as well as pursue exercise stress perfusion imaging study. It seems that he has a history of premature CAD as well as smoking history/hypertension. We will assess for progressive CAD. In the interim, continue aspirin and statins. (2) Essential hypertension: Code(s): I10 - Essential (primary) hypertension Category: Medical Plan: Continue lisinopril. He states his meds were recently increased. Today's blood pressure is high but previous numbers are okay. Not clear if there is any anxiety components. Will need to be followed. (3) Heart palpitations: Code(s): R00.2 - Palpitations Category: Medical Plan: Recommended Holter, but he states it does not bother him too much. We can reassess in the future. Plan Will follow Orders: Orders CA echo transthoracic complete Today I25.10 - Atherosclerotic heart disease of [place] coronary artery without angina pectoris CA stress test Today I25.10 - Atherosclerotic heart disease of [place] coronary artery without angina pectoris, R07.2 - Precordial pain NM cardiolite stress test Today I25.10 - Atherosclerotic heart disease of [place] coronary artery without angina pectoris, R07.2 - Precordial pain Medications: Discontinued azithromycin Discontinued Reason: Patient no longer taking 250 mg PO DAILY 4 days 4 tabs 0RF Coding Level of Care Code New Pt Level 4 (70895) Diagnoses Coronary artery disease without angina pectoris, unspecified vessel or lesion type, unspecified whether [place] or transplanted heart I25.10 Associated angina: without angina Coronary Disease-Associated Artery/Lesion type: unspecified vessel or lesion type [place] vs. transplanted heart: unspecified whether [place] or transplanted heart Essential hypertension I10 Heart palpitations R00.2
== END 2024-02-29 12:56 | disposition home or self-care (01) ==
PROVIDERS: PCP Internal Medicine; Visit Provider Internal Medicine
DX: I25.10 Atherosclerotic heart disease of native coronary artery without angina pectoris (principal); I10 Essential (primary) hypertension; R00.2 Palpitations
CPT/HCPCS: 99204

== ENCOUNTER → 2024-02-29 12:30 | Outpatient (BNVA) | payer BC, SELFPAY | PROVIDERS: PCP Internal Medicine; Visit Provider Internal Medicine ==

== ENCOUNTER → 2024-04-03 07:49 | Outpatient (REF) | payer BC, SELFPAY ==
--- NOTE | ~2024-04-03 | NM_ITS ---
Exercise Myocardial perfusion study Indication: Chest pain to evaluate for myocardial ischemia Technique: The patient was brought in for an exercise perfusion study on 04/03/2024. Patient performed exercise as per Robb protocol and was injected 30 mCi of sestamibi was given intravenously one target HR was achieved. Images were obtained using the SPECT gamma camera interlaced with the gating device. Images were obtained in supine position. Resting perfusion study was performed on 04/05/2024. Patient was administered 30 mCi of sestamibi intravenously at rest. Images were then obtained in supine position. Images obtained with and without CT attenuation. Total DLP 94 mGy-cm. Images were processed with the software and compared side to side in short axis, horizontal long axis and vertical long axis views. Findings: The stress perfusion study showed non attenuated images show severely reduced to absent uptake in the inferior as well as moderately reduced uptake in the apical, severely reduced uptake in the inferoseptal as well as inferolateral wall of the LV myocardium. Attenuated corrected images show moderately reduced uptake in the inferior as well as apical and inferolateral wall of the LV myocardium.. The gated study shows normal LV systolic function with calculated LVEF of 68%. LV cavity is mildly dilated in size. The gated study shows reduced wall thickening and contraction of inferior and adjacent inferolateral and inferoseptal segments. There is no transient ischemic dilation. Resting study shows non attenuated images show improved uptake in the inferior, inferoseptal as well as inferolateral wall of the LV myocardium.. Gating at rest reveals inferior wall motion normality with ejection fraction at 57%. The findings are consistent with reversible defect of the inferior, inferoseptal and basal inferolateral wall suggestive of ischemia possibly of severe intensity. NM/NM cardiolite stress test Impression: 1. Large area of severe intensity inferior, inferoseptal and inferolateral ischemia 2. Gated LVEF is 68% with inferior wall motion abnormality 3. Transient ischemic dilatation not present Stress EKG is positive for ischemia
--- NOTE | 2024-04-03 07:56 | CA_ITS ---
Transthoracic Echocardiogram Patient (Last, First, Middle): Josemanuel Carrillo A Gender: Male Date of : 1965 Age: 59 Procedure Date: 04/03/2024 Procedure Type: Transthoracic Echocardiogram Location: OP Height: 180.34 cm Weight: 91.17 kg BSA: 2.11 m2 Heart Rate: 63 bpm BP: 148 / 78 mmHg Acid Correction Hand: MAXI Referring MD: Ty Booker MD Repair Department Supervisor: Celestine Hopkins MD Symptoms: I25.10 - Atherosclerotic heart disease of [place] coronary artery without... Study Quality: Adequate ECG Rhythm: Sinus Conclusions: - 1. Low normal LV ejection fraction with underlying regional wall motion abnormality consistent with CAD 2. Normal cardiac valvular Doppler 3. No gross pericardial effusion Findings Left Ventricle Normal left ventricular cavity size. There is normal left ventricular wall thickness. The left ventricular systolic function is low normal. The visually estimated ejection fraction is between 50-55%. Spectral Doppler is indicative of an impaired relaxation filling pattern. Wall Motion Rest Echo Findings The inferoseptal wall, the basal inferior, mid inferior, and basal inferolateral segments are hypokinetic. All other scored wall segments showed normal motion. Right Ventricle Normal right ventricular cavity size and systolic function. Atria The left atrium is normal in size. There is no evidence of interatrial shunt. The right atrium is normal in size. Aortic Valve The aortic valve was not well visualized. There is no aortic valve stenosis. There is no aortic valve regurgitation. Mitral Valve There is mild anterior and posterior mitral leaflet thickening. There is trace mitral valve regurgitation. There is no mitral valve stenosis. Pulmonic Valve The pulmonic valve was not well visualized. Tricuspid Valve The tricuspid valve was not well visualized. Tricuspid regurgitation envelope is inadequate for calculation of right ventricular systolic pressure. Normal right atrial pressure. Great Vessels All visible segments of the aorta are normal in size. The pulmonary artery was not well visualized. There is no dilatation of the ascending aorta measuring 3.40 cm. Venous The inferior vena cava is normal in size and collapses greater than 50% with inspiration. Pericardium/Pleural There is no evidence of pericardial effusion. Prior Study Comparison No prior study available for comparison. Measurements 2D Linear Measurements IVSd: 0.80 0.6-0.9/0.6-1.0 cm LVIDd: 5.44 3.9-5.3/4.2-5.9 cm LVIDd Index: 2.58 2.4-3.2/2.2-3.1 cm/m2 LVIDs: 4.05 2.0-3.6 cm LVPWd: 0.78 0.7-1.1 cm LA Diam: 2.90 2.7-3.8/3.0-4.0 cm LAIDs Index: 1.37 1.5-2.3 cm/m2 LV Mass: 191.74 67-162/88-224 g LV Mass Index: 90.87 43-95/49-115 g/m2 LVOT Diam: 2.20 3.0+(-)1.3 cm 2D Systolic Function EF 4C: 54.50 >55% EF 2C: 48.90 >55% EF BiP: 52.00 >55% Mitral Valve MV Pk E: 0.88 MV PK A: 0.48 MV Decel Time: 177.00 E/A: 1.90 E'Lateral: 12.90 E'Medial: 11.60 E/E' Med: 7.60 E/E' Lat: 6.80 PHT: 52.00 MVA PHT: 4.23 Decel [place]: 4.99 Aortic Valve AoV Pk Solo: 1.25 AoV Pk Grad: 6.00 QUINCY: 2.90 LVOT LVOT Pk Solo: 1.00 LVOT Mn Solo: 0.67 LVOT VTI: 0.22 LVOT Pk Grad: 4.00 LVOT Mn Grad: 2.00 LVOT Diam: 2.20 LVOT Area: 3.80 Diastolic Function MV Pk E: 0.88 MV Pk A: 0.48 E/A: 1.90 E'Medial: 11.60 E/E' Med: 7.60 E' Laterial: 12.90 E/E' Lat: 6.80 Right Ventricle TAPSE (mm): 24.80 TVS' Solo: 11.60 Tricuspid Valve RA Press: 3.00 Great Vessels Aorta Sinus of Valsalva: 3.40 2.0-3.5 cm Ao Asc: 3.40 2.1-3.4 cm Pulmonary Veins Pulm Vein S/D 0.90 Pulmonary Valve PV Pk Solo: 0.68 Peak PV Grad: 2.00 Updated in Other Vendor System with Status of Final Celestine Hopkins MD electronically signed on 04/03/2024 12:28:27 PM with status of Final
--- NOTE | 2024-04-03 07:56 | CA_ITS ---
Acquisition Time: 2024-04-03 09:20:43 Total Exercise Time: 00:07:05 Test Indications: CP Medications: SEE H Protocol: VIOLET Max HR: 146 BPM 90% of Pred: 161 BPM Max BP: 174/052 mmHG Max Work Load: 8.6 METS Exercise stress test exercise 7 min 5 sec of Violet protocol achieving 90% MPHR, with mild SOB, no chest discomfort, with isolated PVCs and venticular bigeminy, and cuplets with a increase in recovery, with max BP 174/52, with ST depressions in leads 2, 3, aVF, V3-V6. and elevations in aVF. Nuclear images pending, Test reviewed with Dr. Hopkins Referred By: Ty Booker Overread By: Alison Machado
== END ==
LOC: HO.CARD 07:49
PROVIDERS: Visit Provider Internal Medicine
DX: R07.2 Precordial pain (principal); I25.10 Atherosclerotic heart disease of native coronary artery without angina pectoris
CPT/HCPCS: 78452; 93017; 93306; A9500

== ENCOUNTER → 2024-04-03 07:56 | Outpatient (BNV) | payer BC, SELFPAY | PROVIDERS: Visit Provider Internal Medicine Cardiovascular Disease | DX: I25.10 Atherosclerotic heart disease of native coronary artery without angina pectoris (principal); I49.3 Ventricular premature depolarization | CPT/HCPCS: 78452; 93016; 93018; 93320; 93325; 93350 ==

== ENCOUNTER 2024-04-17 10:31 | Outpatient (AMB) | payer BC, SELFPAY ==
--- NOTE | 2024-04-17 10:38 | MHC.OFFVIS ---
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 Recently seen in consultation regarding coronary artery disease. He states he has had 2 cardiac catheterizations around 15 years ago and 20 years ago. Seems like he has had premature CAD in his late 30s. Apparently saw Dr. Garcia in the past but has not seen any speech lang path therapist for a few years. Overall, generally feels okay. No clear-cut anginal-type complaints. Whenever he is walking uphill extra, can feel exhausted. Some palpitations off and on. He was a smoker but stopped smoking few months back. Recently underwent an echocardiogram and stress test. [facility] Medical History (Updated 03/08/24 @ 00:03 by Bella Phillip) Hyperlipidemia CAD (coronary artery disease) Essential hypertension Family History Mother Stented coronary artery Brother Heart attack Social History (Updated 04/17/24 @ 10:42 by Neha Sharp CMA) Household Members: Spouse Housing: House Do you presently have visiting nurse or other home services: No Alcohol intake: never Patient Tobacco Use Status: Former Tobacco user Tobacco use type: Cigarette service: No Review of Systems Const Denies chills, Denies fatigue, Denies fever(s), Denies weight gain and Denies weight loss ENT Denies dizziness Card Denies chest pain, Reports irregular heart rhythm, Denies leg edema, Denies lightheadedness, Denies palpitations, Denies dyspnea on exertion, Denies orthopnea and Denies other Resp Denies cough and Denies dyspnea on exertion GI Denies hematochezia and Denies change in stool character Musc Denies abnormal gait, Denies muscle weakness, Denies numbness, Denies radiating pain into limb and Denies tingling Neuro Denies abnormal gait, Denies dizziness, Denies numbness and Denies tingling Endo Denies fatigue and Denies palpitations Physical Exam Vital Signs: Last Vital Signs Pulse 70 04/17/24 10:39 BP 126/58 L 04/17/24 10:39 BMI result Body Mass Index 28.3 Const General: comfortable and no acute distress Orientation/consciousness: patient oriented x3 HEENT Other: Unremarkable Head: Yes normal to inspection Neck Neck: Yes normal visual inspection Chest Chest palpation & inspection: normal inspection of the chest Resp Auscultation: clear to auscultation bilaterally Cardio Palpation: normal PMI Heart sounds: S1 normal heart sound present, S2 normal heart sound present, no gallops, no murmurs and no rubs GI Palpation (GI): Soft to palpation Back/Spine/Pelvis Other: unremarkable Skin General skin exam: no rashes or lesions noted Neuro General: patient oriented x3 Extrem General: Yes normal to inspection Psych Mental Status: mental status grossly normal Assessment & Plan Assessment & Plan (1) CAD (coronary artery disease): Code(s): I25.10 - Atherosclerotic heart disease of [place] coronary artery without angina pectoris Category: Medical Qualifiers: Associated angina: without angina Coronary Disease-Associated Artery/Lesion type: unspecified vessel or lesion type [place] vs. transplanted heart: unspecified whether [place] or transplanted heart Qualified Code(s): I25.10 - Atherosclerotic heart disease of [place] coronary artery without angina pectoris Plan: In the recent EKG, underlying rhythm is sinus at 94/Min; old inferior infarct but otherwise unremarkable. Echocardiogram with low normal LVEF, 50-55%. Inferoseptal, inferior/inferolateral hypokinesis. In the stress test, he was able to do 8.6 METS on Robb protocol; no angina; EKG changes present; perfusion part reported as large area of severe intensity ischemia in the inferior/inferoseptal inferolateral wall associated with wall motion abnormality the gated portion. Suspect this all represents a prior inferior infarct with some fermín-infarct ischemia. We discussed about a diagnostic catheterization considering the fact that he has had very premature CAD starting in his 30s. After understanding, he is willing. Will schedule the same. Continue aspirin statins. Check lipids. (2) Essential hypertension: Code(s): I10 - Essential (primary) hypertension Category: Medical Plan: Normal today. Orders: Orders Lipid Panel Today E78.5 - Hyperlipidemia, unspecified Coding Level of Care Code Est Pt Level 4 (74615) Diagnoses Coronary artery disease without angina pectoris, unspecified vessel or lesion type, unspecified whether [place] or transplanted heart I25.10 Associated angina: without angina Coronary Disease-Associated Artery/Lesion type: unspecified vessel or lesion type [place] vs. transplanted heart: unspecified whether [place] or transplanted heart Essential hypertension I10
[2024-04-17 10:39] VITALS: BP 126/58; PULSE 70; BMI 28.3
== END 2024-04-17 11:15 | disposition home or self-care (01) ==
PROVIDERS: PCP Internal Medicine; Visit Provider Internal Medicine
DX: I25.10 Atherosclerotic heart disease of native coronary artery without angina pectoris (principal); I10 Essential (primary) hypertension
CPT/HCPCS: 99214

== ENCOUNTER → 2024-04-17 10:31 | Outpatient (BNVA) | payer BC, SELFPAY | PROVIDERS: Visit Provider Internal Medicine ==

== ENCOUNTER 2024-04-21 08:34 | Outpatient (REF) | payer BC, SELFPAY ==
[2024-04-21 11:16] LABS: Hematocrit 40.9 % (42.0-52.0); Hemoglobin 13.6 g/dl (14.0-18.0); Mean Corpuscular HGB Conc 33.3 g/dl (31.0-36.0); Mean Corpuscular Hemoglobin 31.3 pg (27.0-33.0); Mean Platelet Volume 10.3 fL (9.4-12.4); Platelet Count 196 X10*3/uL (160-400); Red Blood Count 4.35 X10*6/uL (4.60-5.80); Red Cell Distribution Width 13.3 % (11.0-16.0); White Blood Count 6.8 X10*3/uL (4.8-10.8)
[2024-04-21 11:25] LABS: INTERNATIONAL NORM RATIO 0.9 (0.9-1.1); Prothrombin Time 11.4 SEC (11.1-13.3)
[2024-04-21 11:43] LABS: Anion Gap 14 (12-20); Blood Urea Nitrogen 23 mg/dL (9-16); Calcium 9.2 mg/dL (8.4-10.2); Carbon Dioxide 25 mmol/L (22-29); Chloride 108 mmol/L (96-108); Cholesterol 120 mg/dL (<200); Estimated Glomerular Filt Rate > 60; Glucose Random 102 mg/dL (60-115); HDL Cholesterol 49 mg/dL (>40); LDL Cholesterol Calculated 62 mg/dL (<100); Potassium 4.4 mmol/L (3.3-5.1); Sodium 143 mmol/L (135-145); Triglycerides 46 mg/dL (<150)
== END 2024-04-21 08:35 | disposition home or self-care (01) ==
LOC: HO.HMGCLDS 08:34
PROVIDERS: PCP Internal Medicine; Visit Provider Internal Medicine
DX: I25.10 Atherosclerotic heart disease of native coronary artery without angina pectoris (principal); E78.5 Hyperlipidemia, unspecified
CPT/HCPCS: 36415; 80048; 80061; 85027; 85610

== ENCOUNTER → 2024-05-15 23:59 | Outpatient (BNV) | payer BC, SELFPAY | PROVIDERS: PCP Internal Medicine; Visit Provider Internal Medicine Cardiovascular Disease | DX: R93.1 Abnormal findings on diagnostic imaging of heart and coronary circulation (principal) | CPT/HCPCS: 93458; 99152 ==

== ENCOUNTER 2024-05-31 12:24 | Outpatient (AMB) | payer BC, SELFPAY ==
--- NOTE | 2024-05-31 12:29 | MHC.OFFVIS ---
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 Recently seen in consultation regarding coronary artery disease. He states he has had 2 cardiac catheterizations around 15 years ago and 20 years ago. Seems like he has had premature CAD in his late 30s. Apparently saw Dr. Garcia in the past but has not seen any practicing md anesthesiologist for a few years. He underwent comprehensive workup including echocardiogram, stress test and also had cardiac catheterization. Overall, feels fine. No clear angina. [facility], [facility] Medical History (Updated 03/08/24 @ 00:03 by Bella Phillip) Hyperlipidemia CAD (coronary artery disease) Essential hypertension Surgical History (Updated 05/31/24 @ 12:33 by Neha Sharp CMA) Hx of cardiac cath Family History Mother Stented coronary artery Brother Heart attack Social History Household Members: Spouse Housing: House Do you presently have visiting nurse or other home services: No Alcohol intake: never Patient Tobacco Use Status: Former Tobacco user Tobacco use type: Cigarette service: No Review of Systems Const Denies chills, Denies fatigue, Denies fever(s), Denies weight gain and Denies weight loss ENT Denies dizziness Card Denies chest pain, Denies leg edema, Denies lightheadedness, Denies palpitations, Denies dyspnea on exertion, Denies orthopnea and Denies other Resp Denies cough and Denies dyspnea on exertion GI Denies hematochezia and Denies change in stool character Musc Denies abnormal gait, Denies muscle weakness, Denies numbness, Denies radiating pain into limb and Denies tingling Neuro Denies abnormal gait, Denies dizziness, Denies numbness and Denies tingling Endo Denies fatigue and Denies palpitations Physical Exam Vital Signs: Last Vital Signs Pulse 64 05/31/24 12:30 BP 104/56 L 05/31/24 12:30 BMI result Body Mass Index 28.7 Const General: comfortable and no acute distress Orientation/consciousness: patient oriented x3 HEENT Other: Unremarkable Head: Yes normal to inspection Neck Neck: Yes normal visual inspection Chest Chest palpation & inspection: normal inspection of the chest Resp Auscultation: clear to auscultation bilaterally Cardio Palpation: normal PMI Heart sounds: S1 normal heart sound present, S2 normal heart sound present, no gallops, no murmurs and no rubs GI Palpation (GI): Soft to palpation Back/Spine/Pelvis Other: unremarkable Skin General skin exam: no rashes or lesions noted Neuro General: patient oriented x3 Extrem General: Yes normal to inspection Psych Mental Status: mental status grossly normal Assessment & Plan Assessment & Plan (1) CAD (coronary artery disease): Code(s): I25.10 - Atherosclerotic heart disease of [place] coronary artery without angina pectoris Category: Medical Qualifiers: Associated angina: without angina Coronary Disease-Associated Artery/Lesion type: unspecified vessel or lesion type [place] vs. transplanted heart: unspecified whether [place] or transplanted heart Qualified Code(s): I25.10 - Atherosclerotic heart disease of [place] coronary artery without angina pectoris Plan: In the recent EKG, underlying rhythm is sinus at 94/Min; old inferior infarct, but otherwise unremarkable. Echocardiogram with low normal LVEF, 50-55%. Inferoseptal, inferior/inferolateral hypokinesis. In the stress test, he was able to do 8.6 METS on Robb protocol; no angina; EKG changes present; perfusion part reported as large area of severe intensity ischemia in the inferior/inferoseptal inferolateral wall associated with wall motion abnormality in the gated portion. In cardiac catheterization; mild disease in LAD; OM2 has ostial 80% stenosis; patent stent in the diagonal branch with mild ISR; multiple stents in right coronary artery in the proximal to mid segment with mild InStent restenosis. Overall, continue optimal medical therapy. Per recommendations from cath team, PCI of OM2 if any anginal symptoms. Discussed about this with patient. Continue aspirin and statins. Most recent LDL is 62 mg/dL. (2) Essential hypertension: Code(s): I10 - Essential (primary) hypertension Category: Medical Plan: On lisinopril. Stable. Coding Level of Care Code Est Pt Level 4 (10167) Diagnoses Coronary artery disease without angina pectoris, unspecified vessel or lesion type, unspecified whether [place] or transplanted heart I25.10 Associated angina: without angina Coronary Disease-Associated Artery/Lesion type: unspecified vessel or lesion type [place] vs. transplanted heart: unspecified whether [place] or transplanted heart Essential hypertension I10
[2024-05-31 12:30] VITALS: BP 104/56; PULSE 64; BMI 28.7
== END 2024-05-31 12:48 | disposition home or self-care (01) ==
PROVIDERS: PCP Internal Medicine; Visit Provider Internal Medicine
DX: I25.10 Atherosclerotic heart disease of native coronary artery without angina pectoris (principal); I10 Essential (primary) hypertension
CPT/HCPCS: 99214

== ENCOUNTER → 2024-05-31 12:24 | Outpatient (BNVA) | payer BC, SELFPAY | PROVIDERS: PCP Internal Medicine; Visit Provider Internal Medicine ==

== ENCOUNTER 2024-12-06 13:35 | Outpatient (AMB) | payer BC, SELFPAY ==
--- NOTE | 2024-12-06 13:53 | MHC.OFFVIS ---
Vital Signs 12/06/24 13:56 Height 5 ft 11 in Weight 213 lb 6.519 oz BMI 29.8 BP 110/56 L Blood Pressure Location Lt brachial Position Sitting Pulse 59 Pulse Source Monitor Intake Visit Reasons: 6m follow up Chamber Magistrate Required: No Accompanied by: Self / Same As Patient Allergies No Known Allergies Allergy (Verified 11/02/23 18:40) Medication List - Last Reconciled 12/06/24 by Ty Booker MD aspirin 81 mg PO DAILY atorvastatin 40 mg PO DAILY lisinopril 20 mg PO DAILY HPI Comments Details: Josemanuel returns for follow-up. Recently seen in consultation regarding coronary artery disease. He states he has had 2 cardiac catheterizations around 15 years ago and 20 years ago. Seems like he has had premature CAD in his late 30s. Apparently saw Dr. Garcia in the past but has not seen any missile tracking technician for a few years. He underwent comprehensive workup including echocardiogram, stress test and also had cardiac catheterization. He is not having any angina but complaining of palpitations. No specific patterns and can happen any time. [facility] Medical History (Updated 03/08/24 @ 00:03 by Bella Phillip) Hyperlipidemia CAD (coronary artery disease) Essential hypertension Surgical History Hx of cardiac cath Family History Mother Stented coronary artery Brother Heart attack Social History Household Members: Spouse Housing: House Do you presently have visiting nurse or other home services: No Alcohol intake: never Patient Tobacco Use Status: Former Tobacco user Tobacco use type: Cigarette service: No Review of Systems Const Denies chills, Denies fatigue, Denies fever(s), Denies frequent falls, Denies weakness, Denies weight gain and Denies weight loss ENT Denies dizziness Card Denies chest pain, Denies leg edema, Reports lightheadedness, Reports palpitations, Denies dyspnea and Denies dyspnea on exertion Resp Denies cough, Denies dyspnea and Denies dyspnea on exertion GI Denies hematochezia Musc Denies abnormal gait, Denies muscle weakness, Denies numbness, Denies radiating pain into limb and Denies tingling Neuro Denies abnormal gait, Denies dizziness, Denies frequent falls, Denies numbness, Denies tingling and Denies weakness Endo Denies fatigue and Reports palpitations Physical Exam Vital Signs: Last Vital Signs Pulse 59 12/06/24 13:56 BP 110/56 L 12/06/24 13:56 BMI result Body Mass Index 29.8 Const General: comfortable and no acute distress Orientation/consciousness: patient oriented x3 HEENT Other: Unremarkable Head: Yes normal to inspection Neck Neck: Yes normal visual inspection Chest Chest palpation & inspection: normal inspection of the chest Resp Auscultation: clear to auscultation bilaterally Cardio Palpation: normal PMI Heart sounds: S1 normal heart sound present, S2 normal heart sound present, no gallops, no murmurs and no rubs GI Palpation (GI): Soft to palpation Back/Spine/Pelvis Other: unremarkable Skin General skin exam: no rashes or lesions noted Neuro General: patient oriented x3 Extrem General: Yes normal to inspection Psych Mental Status: mental status grossly normal Office Procedures EKG Details: EKG with sinus bradycardia at 59/Min; nonspecific inferior changes; normal AR/[place]. [id number], Complete Assessment & Plan Assessment & Plan (1) CAD (coronary artery disease): Code(s): I25.10 - Atherosclerotic heart disease of [place] coronary artery without angina pectoris Category: Medical Qualifiers: Associated angina: without angina Coronary Disease-Associated Artery/Lesion type: unspecified vessel or lesion type [place] vs. transplanted heart: unspecified whether [place] or transplanted heart Qualified Code(s): I25.10 - Atherosclerotic heart disease of [place] coronary artery without angina pectoris Plan: Cardiac studies reviewed. Echocardiogram with low normal LVEF, 50-55%. Inferoseptal, inferior/inferolateral hypokinesis. In the stress test, he was able to do 8.6 METS on Robb protocol; no angina; EKG changes present; perfusion part reported as large area of severe intensity ischemia in the inferior/inferoseptal inferolateral wall associated with wall motion abnormality in the gated portion. In cardiac catheterization; mild disease in LAD; OM2 has ostial 80% stenosis; patent stent in the diagonal branch with mild ISR; multiple stents in right coronary artery in the proximal to mid segment with mild InStent restenosis. Overall, continue optimal medical therapy. Per recommendations from cath team, PCI of OM2 if any anginal symptoms. Discussed about this with patient. Continue aspirin and statins. Most recent LDL is 62 mg/dL. (2) Essential hypertension: Code(s): I10 - Essential (primary) hypertension Category: Medical Plan: On lisinopril. Stable. (3) Heart palpitations: Code(s): R00.2 - Palpitations Category: Medical Plan: Could be from PVCs noted on prior stress testing. Obtain a Holter monitor for further evaluation. Based on the burden, can plan further care. He already has some bradycardia and hence may not be able tolerate much beta-blockers. To be decided. Plan In our discussion, I outlined the importance of monitoring the palpitations through an extended heart monitor evaluation to adequately capture the irregularities in the patient?s heart rhythm and correlate them to daily activities. The patient was informed about the potential effect of beta blockers on decreasing heart rate further, possibly leading to fatigue, and this strategy will be revisited following the monitoring outcome. Weight management and adherence to a healthy lifestyle, in combination with potentially scheduling a home sleep study, were discussed as integral to managing future cardiovascular risk and symptoms. A thorough examination of recent medication changes and their temporal relationship to symptom exacerbation was addressed, dismissing direct causation. The patient agreed to the proposed plan and comprehensive documentation strategy for improving cardiac care. Orders: Orders ECG 7 day holter monitor Today R00.2 - Palpitations Patient Instructions: - Use the heart monitor as prescribed to track heartbeats and record any palpitations. - Be mindful of caffeine intake and observe any changes in symptoms. - Aim to maintain or reduce weight to alleviate stress on the heart. - Consider undergoing a sleep study if significant extra beats are confirmed. - Keep track of any recurring medication-related symptoms and report if they worsen. Coding Level of Care Code Est Pt Level 4 (84571) Complex EM visit Add On G2211 Diagnoses Coronary artery disease without angina pectoris, unspecified vessel or lesion type, unspecified whether [place] or transplanted heart I25.10 Associated angina: without angina Coronary Disease-Associated Artery/Lesion type: unspecified vessel or lesion type [place] vs. transplanted heart: unspecified whether [place] or transplanted heart Essential hypertension I10 Heart palpitations R00.2 CPT Codes EKG - CPT: 27277-[id number], Complete ([id number])
[2024-12-06 13:56] VITALS: BP 110/56; PULSE 59; BMI 29.8
--- OUTSIDE RECORDS SUMMARY | 2024-12-06 16:24 | XMS_ITS | Encounter Summary ---
Author Organization [facility] Address [address] [place] [address] Care Team Providers Care Ginseng Farmer Name Role Phone Christy Sierra MD Primary Care Provider [phone] Reason for Visit * Reason Onset Date Comments Referral 12/06/2024 Cardiology Insur ance Referral Encounter Details Date Type Department Care Team ([facility] st Contact Info) Description 12/06/2024 [place] [facility] [place] [address] [place] [phone] Christy Sierra MD [address] [place] [phone] Referral (Cardiology Insurance Referral) Social History Tobacco Use Types Packs/Day Years Used Date Smoking Tobacco: Former Cigarettes Smokeless Tobacco: Never Alcohol Use Standard Drinks/Week Comments No 0 (1 standard drink = 0.6 oz pur e alcohol) Sex and Gender Information Value Date Recorded Sex Assigned at Not on file Legal Sex Male 3:16 AM EST Gender Identity Not on file Sexual Orientation Not on file documented as of this encounter Plan of Treatment Not on file documented as of this encounter Visit Diagnoses Not on filedocumented in this encounter Care Teams Ginseng Farmer Relationship Specialty Start Date End Date Christy Sierra MD [address] [place] [address] [phone] PCP - General Internal Medicine 06/02/15 documented as of this encounter
--- OUTSIDE RECORDS SUMMARY | 2024-12-06 16:24 | XMS_ITS | Clinical Summary ---
Author Organization [facility] [address] [place] [address] [place] [phone] Phone Care Team Providers Care Sand Mixer Operator Name Role Phone Christy Sierra MD Primary Care Provider [phone] Allergies No known active allergies Medications atorvastatin (LIPITOR) 40 mg tablet Take 1 tablet (40 mg total) by mouth 1 (one) time each day. 4 Active hydrocortisone 2.5 % cream Apply small amount, To affected area, perianal region, bid 4 Active aspirin (Lupe Low Dose Aspirin) 81 mg EC tablet 1 TABLET DAILY Active lisinopriL (PRINIVIL,ZEST RIL) 20 mg tablet TAKE 1 TABLET (20 MG TOTAL) BY MOUTH ONE TIME EACH DAY 90 tablet 5 Active lisinopriL (PRINIVIL,ZEST RIL) 20 mg tablet Take 1 tablet (20 mg total) by mouth 1 (one) time each day. 90 tablet 4 025 Discontinued Active Problems Problem Noted Date Diagnosed Date Essential hypertension 02/26/2019 Hyperglycemia 04/06/2017 Obesity (BMI 30-39.9) 04/06/2017 Overweight 10/06/2016 Dysplastic nevus 02/19/2016 Overview (07/12/2024): Dysplastic nevus 02/11 back (mild atypia) [place] (myocardial infarction) 08/24/2005 Overview (07/12/2024): 2004 / stented 02/03 CUATE to LAD diagonal Hyperlipidemia 08/24/2005 Tobacco use disorder 08/24/2005 Overview (07/12/2024): Stopped 01/2016 Known medical problems 08/24/2005 Overview (07/12/2024): some myalgias and elevated CPK with Lipitor IMO update Encounters Date Type Department Care Team Description 12/06/2024 Telephone Adult Medicine [address] [address] Christy Sierra MD Referral (Cardiology Insurance Referral) from Last 3 Months Immunizations Name Administration Dates Next Due Tdap Tetanus diptheria acell ular pertussis (Boostrix; Adacel) 7yo and older 09/30/2015 Surgical History Surgery Date Site/Laterality Comments CARDIAC CATHETERIZATION 2007 PROCEDURE: HISTORICAL CARDIAC CATH; COMMENT: stent COLONOSCOPY October 2016 PROCEDURE: HISTORICAL COLONOSCOPY; COMMENT: diverticulosis Medical History Medical History Date Comments Tobacco use disorder 08/24/2005 DX:Tobacco use disorder Other and unspecified hyperlipidemia 08/24/2005 DX:Other and unspecified hyperlipidemia Myalgia and myositis, unspecified 08/24/2005 DX:Myalgia and myositis, unspecified [place] (myocardial infarction) 08/24/2005 D X:Old [place] (myocardial infarction) Hyperlipidemia 08/24/2005 DX:Hyperlipidemi a Obesity (BMI 30-39.9) 04/06/2017 DX:Obesity (BMI 30-39.9) Hyperglycemia 04/06/2017 DX:Hyperglycemia Family History Medical History Relation Name Comments Heart attack Brother age 56 Other: lymphoma Father age 68 Heart attack Mother age 56 / RA Relation Name Status Comments Brother Father Mother Social History Tobacco Use Types Packs/Day Years Used Date Smoking Tobacco: Former Cigarettes Smokeless Tobacco: Never Alcohol Use Standard Drinks/Week Comments No 0 (1 standard drink = 0.6 oz pur e alcohol) Sex and Gender Information Value Date Recorded Sex Assigned at Not on file Legal Sex Male 3:16 AM EST Gender Identity Not on file Sexual Orientation Not on file Obstetrics History Last Filed Vital Signs Vital Sign Reading Time Taken Comments Blood Pressure 104/56 07/24/2024 2:48 PM EST Pulse 54 07/24/2024 2:48 PM EST Temperature 36.1 ??C (96.9 ??F) 07/24/2024 2:48 PM ES T Respiratory Rate 12 07/24/2024 2:48 PM EST Oxygen Saturation - - Inhaled Oxygen Concentration - - Weight 94.8 kg (209 lb) 07/24/2024 2:48 PM EST Height 180.3 cm (5' 11 ) 07/24/2024 2:48 PM EST Body Mass Index 29.15 07/24/2024 2:48 PM EST Plan of Treatment Health Maintenance Due Date Last Done Comments Hepatitis B Vaccines (1 of 3 - 19+ 3-dose series) 02/17/1984 Pneumococcal Vaccine: 50+ Years (1 of 2 - PCV) 02/17/1984 Pneumococcal Vaccine: Pediatrics (0 to 5 Years) and At-Risk Patients (6 to 64 Years) (1 of 2 - PCV) 02/17/1984 Zoster Vaccines (1 of 2) 02/17/1984 COVID-19 Vaccine (3 - Pfizer risk series) 05/21/2021 04/23/2021, 04/02/2021 Depression Screening 08/07/2022 HIV Screening 08/07/2022 Social Influencers of Health Screening 08/07/2022 Influenza Vaccine (Season Ended) 2025 Hypertension/CHF/CAD Annual BMP Blood Test 07/27/2025 07/27/2024, 08/04/2023 DTaP,Tdap,and Td Vaccines (2 - Td or Tdap) 09/30/2025 09/30/2015 Colorectal Cancer Screening: Colonoscopy 11/24/2026 11/24/2016 Cholesterol Screening (Lipid Panel) 08/04/2028 08/04/2023 RSV Immunization Adult Patients (1 - 1-dose 75+ series) 02/17/2040 Hepatitis C Screening Completed 11/07/2015 MMR Vaccines Aged Out 10/28/2021 No longer eligi ble based on patient's age to complete this topic HIB Vaccines Aged Out No longer eligi ble based on patient's age to complete this topic HPV Vaccines Aged Out No longer eligi ble based on patient's age to complete this topic Hepatitis A Vaccines Aged Out No long er eligible based on patient's age to complete this topic IPV Vaccines Aged Out No longer eligi ble based on patient's age to complete this topic Meningococcal ACWY Vaccine Aged Out N o longer eligible based on patient's age to complete this topic Meningococcal B Vaccine Aged Out No l onger eligible based on patient's age to complete this topic RSV Immunization Patients Under 20 months Aged Out No longer eligible b ased on patient's age to complete this topic Varicella Vaccines Aged Out No longer eligible based on patient's age to complete this topic Procedures Procedure Name Priority Date/Time Associated Diagnosis Comments BASIC METABOLIC PANEL Routine 07/27/2024 8:49 AM EST Palpitation LIPID PANEL Routine 08/04/2023 HM COLONOSCOPY Routine 11/24/2016 HEPATITIS C SCREENING Routine 11/07/2015 from Last 3 Months or Most Recently Relevant to Health Maintenance Results * Basic metabolic panel (07/27/2024 8:49 AM EST) Sodium 139 133 - 145 mmol/L LAB CHEMISTRY METHOD 07/27/2024 12:46 PM [facility] Potassium 4.1 3.5 - 5.5 mmol/L LAB CHEMISTRY METHOD 07/27/2024 12:46 PM [facility] Chloride 107 96 - 110 mmol/L LAB CHEMISTRY METHOD 07/27/2024 12:46 PM [facility] CO2 28 21 - 32 mmol/L LAB CHEMISTRY METHOD 07/27/2024 12:46 PM [facility] Anion Gap 4 3 - 11 LAB CHEMISTRY METHOD 07/27/2024 12:46 PM [facility] Glucose 98 70 - 100 mg/dL LAB CHEMISTRY METHOD 07/27/2024 12:46 PM [facility] BUN 23 5 - 25 mg/dL LAB CHEMISTRY METHOD 07/27/2024 12:46 PM [facility] Creatinine 1.13 0.70 - 1.30 mg/dL LAB CHEMISTRY METHOD 07/27/2024 12:46 PM [facility] eGFR 75 >=60 mL/min/1. 73m2 LAB CHEMISTRY METHOD 07/27/2024 12:46 PM EST [facility] Comment:Calculation based on the??Chronic Kidney Disease Epidemiology Collaboration (CKD-EPI) equation refit??without adjustment for race. BUN/Creatinine Ratio 20.4 LAB CHEMISTRY METHOD 07/27/2024 12:46 PM EST [facility] Calcium 9.1 8.5 - 10.5 mg/dL LAB CHEMISTRY METHOD 07/27/2024 12:46 PM EST [facility] Blood Venous blood specimen / Unknown Venipuncture / Unknown 07/27/2024 8:49 AM EST 07/27/2024 8:49 AM EST Christy Sierra MD LAB BLOOD ORDERABLES Final Resul t [facility] [address] [place] [address], * Lipid panel (08/04/2023) [facility] LDL/HDL Ratio 2 0 - 4 Triglycerides 69 0 - 150 mg/dL Cholesterol 133 0 - 200 mg/dL HDL 58 >=40 mg/dL LDL Cholesterol 62 0 - 100 mg/dL Blood Venous blood specimen / Unknown Shzaia Ferro MD LAB BLOOD ORDERABLES Tiffanie l Result * Colonoscopy (11/24/2016) Pathologist [facility] Colonoscopy no interpretation , abstracted Anatomical Region Laterality Modality Other Shazia Ferro MD HEALTH MAINTENANCE Final Result * Hepatitis C Screening (11/07/2015) [facility] Hepatitis C Screening abstracted Shazia Ferro MD HEALTH MAINTENANCE Final Result from Last 3 Months or Most Recently Relevant to Health Maintenance Insurance [facility] Care Teams Sand Mixer Operator Relationship Specialty Start Date End Date Christy Sierra MD [address] [place] [address] PCP - General Internal Medicine 06/02/15
== END 2024-12-06 14:19 | disposition home or self-care (01) ==
LOC: HO.HCS 13:36
PROVIDERS: PCP Internal Medicine; Visit Provider Internal Medicine
DX: I25.10 Atherosclerotic heart disease of native coronary artery without angina pectoris (principal); I10 Essential (primary) hypertension; R00.2 Palpitations
CPT/HCPCS: 93010; 99214

== ENCOUNTER → 2024-12-06 13:35 | Outpatient (BNVA) | payer BC, SELFPAY | PROVIDERS: PCP Internal Medicine; Visit Provider Internal Medicine | DX: I25.10 Atherosclerotic heart disease of native coronary artery without angina pectoris (principal); I10 Essential (primary) hypertension; R00.2 Palpitations; R00.1 Bradycardia, unspecified | CPT/HCPCS: 93005 ==

== ENCOUNTER → 2025-01-02 13:26 | Outpatient (REF) | payer BC, SELFPAY ==
--- OUTSIDE RECORDS SUMMARY | 2025-01-02 14:42 | XMS_ITS | Clinical Summary ---
Author Organization [facility] [address] [place] [address] [place] [phone] Phone Care Team Providers Care Supervisor Shipping Room Name Role Phone Christy Sierra MD Primary Care Provider [phone] Allergies No known active allergies Medications atorvastatin (LIPITOR) 40 mg tablet Take 1 tablet (40 mg total) by mouth 1 (one) time each day. 03/07/2024 Active hydrocortisone 2.5 % cream Apply small amount, To affected area, perianal region, bid 01/12/2024 Active aspirin (Lupe Low Dose Aspirin) 81 mg EC tablet 1 TABLET DAILY Active lisinopriL (PRINIVIL,ZESTR IL) 20 mg tablet TAKE 1 TABLET (20 MG TOTAL) BY MOUTH ONE TIME EACH DAY 90 tablet 11/28/2024 Active Active Problems Problem Noted Date Diagnosed Date Essential hypertension 02/26/2019 Hyperglycemia 04/06/2017 Obesity (BMI 30-39.9) 04/06/2017 Overweight 10/06/2016 Dysplastic nevus 02/19/2016 Overview (07/12/2024): Dysplastic nevus 02/11 back (mild atypia) [place] (myocardial infarction) 08/24/2005 Overview (07/12/2024): 2004 / stented 02/03 CUATE to LAD diagonal Hyperlipidemia 08/24/2005 Tobacco use disorder 08/24/2005 Overview (07/12/2024): Stopped 01/2016 Known medical problems 08/24/2005 Overview (07/12/2024): some myalgias and elevated CPK with Lipitor IMO update Encounters Date Type Department Care Team Description 12/06/2024 Telephone Adult Medicine [address] [address] Christy Sierra MD Referral (Cardiology [...] unspecified 08/24/2005 DX:Myalgia and myositis, unspecified [place] (myocardial infarction) 08/24/2005 D X:Old [place] (myocardial infarction) Hyperlipidemia 08/24/2005 DX:Hyperlipidemi a Obesity [...] AM EST Palpitation LIPID PANEL Routine 08/04/2023 COLONOSCOPY Routine 11/24/2016 HEPATITIS C SCREENING Routine 11/07/2015 from Last 3 Months or Most Recently Relevant to Health Maintenance Results * Basic metabolic panel (07/27/2024 8:49 AM EST) Sodium 139 133 - 145 mmol/L LAB CHEMISTRY METHOD 07/27/2024 12:46 PM [facility] Potassium 4.1 3.5 - 5.5 mmol/L LAB CHEMISTRY METHOD 07/27/2024 12:46 PM [facility] Chloride 107 96 - 110 mmol/L LAB CHEMISTRY METHOD 07/27/2024 12:46 PM [facility] CO2 28 21 - 32 mmol/L LAB CHEMISTRY METHOD 07/27/2024 12:46 PM [facility] Anion Gap 4 3 - 11 LAB CHEMISTRY METHOD 07/27/2024 12:46 PM [facility] Glucose 98 70 - 100 mg/dL LAB CHEMISTRY METHOD 07/27/2024 12:46 PM [facility] BUN 23 5 - 25 mg/dL LAB CHEMISTRY METHOD 07/27/2024 12:46 PM [facility] Creatinine 1.13 0.70 - 1.30 mg/dL LAB CHEMISTRY METHOD 07/27/2024 12:46 PM [facility] eGFR 75 >=60 mL/min/1. 73m2 LAB CHEMISTRY METHOD 07/27/2024 12:46 PM [facility] Comment:Calculation based on the??Chronic Kidney Disease Epidemiology Collaboration (CKD-EPI) equation refit??without adjustment for race. BUN/Creatinine Ratio 20.4 LAB CHEMISTRY METHOD 07/27/2024 12:46 PM EST [facility] Calcium 9.1 8.5 - 10.5 mg/dL LAB CHEMISTRY METHOD 07/27/2024 12:46 PM EST [facility] Blood Venous blood specimen / Unknown Venipuncture / Unknown 07/27/2024 8:49 AM EST 07/27/2024 8:49 AM EST Christy Sierra MD LAB BLOOD ORDERABLES Final Resul t [facility] [address] [place] [address], * Lipid panel (08/04/2023) [facility] LDL/HDL Ratio 2 0 - 4 Triglycerides 69 0 - 150 mg/dL Cholesterol 133 0 - 200 mg/dL HDL 58 >=40 mg/dL LDL Cholesterol 62 0 - 100 mg/dL Blood Venous blood specimen / Unknown Shazia Ferro MD LAB BLOOD ORDERABLES Tiffanie l Result * Colonoscopy (11/24/2016) Pathologist [facility] Colonoscopy no interpretation , abstracted Anatomical Region Laterality Modality Other Historical Kasie [place] HEALTH MAINTENANCE Final Result * Hepatitis C Screening (11/07/2015) [facility] Hepatitis C Screening abstracted Historical Kasie [place] HEALTH MAINTENANCE Final Result from Last 3 Months or Most Recently Relevant to Health [place] [id number] [facility] Care Teams Supervisor Shipping Room Relationship Specialty Start Date End Date Christy Sierra MD [address] [place] [phone] PCP - General Internal Medicine 06/02/15
--- OUTSIDE RECORDS SUMMARY | 2025-01-02 14:42 | XMS_ITS | Encounter Summary ---
Author Organization [facility] Address [address] [place] [address] Care Team Providers Care Clinical Laboratory Assistant Name Role Phone Christy Sierra MD Primary Care Provider [phone] Reason for Referral * Consultation (Routine) - Closed Specialty Diagnoses / Procedures Referred By Contfox lewis Referred To Contact Cardiology Diagnoses [place] (myocardial infarction) Christy Sierra MD [address] [place] [address] Phone: tel: fax: Ty Booker MD [address] [place] [address] [place] [address] Phone: tel: fax: Referral ID Status Reason Start Date Expiration Date V isits Requested Visits Authorized [id number] Closed Specialty Services Required 12/06/2024 12/06/2025 6 6 Reason for Visit * Reason Onset Date Comments Referral 12/06/2024 Cardiology Insur ance Referral Encounter Details Date Type Department Care Team (Late st Contact Info) Description 12/06/2024 Telephone Adult Medicine [facility] [address] [place] [address] Christy Sierra MD [address], [place] Referral (Cardiology Insurance Referral) Social History Tobacco [...] on file documented as of this encounter Progress Notes * Sandra Belen - 12/06/2024 4:20 PM EDT What insurance does the patient have today? Payor: [email or web address]/@[email or web address]@ Referrals cannot be processed if the insurance is not accurate. If the insurance listed above is NO BILLING INFORMATION FOUND FOR THIS ENCOUNTER then the patients correct insurance must be obtainedand registered in [facility] or their referral can not be processed. Name of person calling to request this referral? Fax - [facility] Referred To Provider (Include first and last name): Ty Booker NPI (if known): [id number] Order/Specialty requested cardiology Chief Complaint (Note: This is not a body part or a procedure): CAD I25.10 Has the patient seen provider for this problem/Dx before? N/A Referred To Provider Address: Referred To Provider Referred To Provider Does patient have an appointment scheduled?: yes If yes, what is the date of the appointment?: 12/06/24 Is this a retro request? Not at the time of request Number of visits requested: 6 Is this appointment related to: MVA or worker compensation? no documented in this encounter Plan of Treatment Scheduled Referrals Name Type Priority Associated Diagnoses Order Schedule Ambulatory referral to Cardiology Outpatient Referral Routine [place] (myocardial infarction) Expected: 01/09/2025, Expires: 12/06/2025 documented as of this encounter Visit Diagnoses Diagnosis [place] (myocardial infarction)- Primary Old myocardial infarction documented in this encounter Care Teams Clinical Laboratory Assistant Relationship Specialty Start Date End Date Christy Sierra MD [address] [place] [address] PCP - General Internal Medicine 06/02/15 documented as of this encounter
== END ==
LOC: HO.CARD 13:26
PROVIDERS: PCP Internal Medicine; Visit Provider Internal Medicine
DX: R00.2 Palpitations (principal)
CPT/HCPCS: 93242

== ENCOUNTER → 2025-01-02 13:29 | Outpatient (BNV) | payer BC, SELFPAY | PROVIDERS: PCP Internal Medicine; Visit Provider Internal Medicine Cardiovascular Disease | DX: I49.3 Ventricular premature depolarization (principal) | CPT/HCPCS: 93244 ==

== ENCOUNTER 2025-06-13 13:30 | Outpatient (AMB) | payer BC, SELFPAY ==
[2025-06-13 13:31] VITALS: BP 114/62; PULSE 66; BMI 29.1
--- NOTE | 2025-06-13 13:31 | A.OFFVIS_ITS ---
Vital Signs 06/13/25 13:31 Height 5 ft 11 in Weight 208 lb 8.917 oz BMI 29.1 BP 114/62 Blood Pressure Location Rt brachial Position Sitting Pulse 66 Pulse Source Pulse Oximeter Intake Visit Reasons: 6m follow up/holter Refueling Ramp Attendant Required: No Allergies No Known Allergies Allergy (Verified 06/13/25 13:34) Medication List - Last Reconciled 06/13/25 by Ty Booker MD aspirin 81 mg PO DAILY atorvastatin 40 mg PO DAILY lisinopril 20 mg PO DAILY HPI Comments Details: Josemanuel returns for follow-up. History of premature coronary disease starting in his 30s and has had catheterizations starting almost 2 decades ago. After he was seen recently, he underwent a comprehensive workup including an echocardiogram, stress test followed by cardiac catheterization. He had reported some palpitations and that led to a Holter monitor showing PVCs but he states it is spontaneously better. Otherwise, he states he feels well. No angina or other symptoms. 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 [facility] Medical History (Updated 06/13/25 @ 14:21 by Ty Booker MD) Hyperlipidemia CAD (coronary artery disease) Essential hypertension Surgical History Hx of cardiac cath Family History Mother Stented coronary artery Brother Heart attack Social History Household Members: Spouse Housing: House Do you presently have visiting nurse or other home services: No Alcohol intake: never Patient Tobacco Use Status: Former Tobacco user Tobacco use type: Cigarette service: No Review of Systems ENT Reports dizziness Card Denies chest pain, Denies chest pain at rest, Denies chest pain with activity, Denies rapid heart rate, Denies pedal edema, Denies edema, Denies leg edema, Denies lightheadedness, Denies palpitations, Denies dyspnea, Denies dyspnea on exertion and Denies orthopnea Resp Denies cough, Denies dyspnea and Denies dyspnea on exertion GI Denies hematochezia and Denies change in stool character Musc Denies abnormal gait, Reports limited range of motion, Reports muscle cramps, Denies muscle weakness, Denies numbness, Denies radiating pain into limb, Denies stiffness and Denies tingling Neuro Denies abnormal gait, Reports dizziness, Denies numbness and Denies tingling Endo Denies palpitations Physical Exam Vital Signs: Last Vital Signs Pulse 66 06/13/25 13:31 BP 114/62 06/13/25 13:31 BMI result Body Mass Index 29.1 Const General: comfortable and no acute distress Orientation/consciousness: patient oriented x3 HEENT Other: Unremarkable Head: Yes normal to inspection Neck Neck: Yes normal visual inspection Chest Chest palpation & inspection: normal inspection of the chest Resp Auscultation: clear to auscultation bilaterally Cardio Palpation: normal PMI Heart sounds: S1 normal heart sound present, S2 normal heart sound present, no gallops, no murmurs and no rubs GI Palpation (GI): Soft to palpation Back/Spine/Pelvis Other: unremarkable Skin General skin exam: no rashes or lesions noted Neuro General: patient oriented x3 Extrem General: Yes normal to inspection Psych Mental Status: mental status grossly normal Assessment & Plan Assessment & Plan (1) CAD (coronary artery disease): Code(s): I25.10 - Atherosclerotic heart disease of [place] coronary artery without angina pectoris Category: Medical Qualifiers: Associated angina: without angina Coronary Disease-Associated Artery/Lesion type: unspecified vessel or lesion type [place] vs. transplanted heart: unspecified whether [place] or transplanted heart Qualified Code(s): I25.10 - Atherosclerotic heart disease of [place] coronary artery without angina pectoris Plan: Cardiac studies reviewed. Echocardiogram with low normal LVEF, 50-55%. Inferoseptal, inferior/inferolateral hypokinesis. In the stress test, he was able to do 8.6 METS on Robb protocol; no angina; EKG changes present; perfusion part reported as large area of severe intensity ischemia in the inferior/inferoseptal inferolateral wall associated with wall motion abnormality in the gated portion. In cardiac catheterization; mild disease in LAD; OM2 has ostial 80% stenosis; patent stent in the diagonal branch with mild ISR; multiple stents in right coronary artery in the proximal to mid segment with mild InStent restenosis. Overall, continue optimal medical therapy. Per recommendations from cath team, PCI of OM2 if any anginal symptoms. Continue aspirin and statins. Most recent LDL is 62 mg/dL. (2) Essential hypertension: Code(s): I10 - Essential (primary) hypertension Category: Medical Plan: On Lisinopril. Stable. (3) PVC (premature ventricular contraction): Code(s): I49.3 - Ventricular premature depolarization Category: Medical Plan: In the Holter monitor, found to have low burden of PVCs but correlates with symptoms. We discussed about beta-blockers but he states he would rather not take any medications unless too bothersome. Coding Level of Care Code Est Pt Level 4 (16425) Complex EM visit Add On G2211 Diagnoses Coronary artery disease without angina pectoris, unspecified vessel or lesion type, unspecified whether [place] or transplanted heart I25.10 Associated angina: without angina Coronary Disease-Associated Artery/Lesion type: unspecified vessel or lesi on type [place] vs. transplanted heart: unspecified whether [place] or transplanted heart Essential hypertension I10 PVC (premature ventricular contraction) I49.3
--- OUTSIDE RECORDS SUMMARY | 2025-06-13 16:57 | XMS_ITS | Clinical Summary ---
Author Organization [facility] Address [address] [place] [id number] Phone Care Team Providers Care Scientific Editor Name Role Phone Christy Sierra MD Primary Care Provider [phone] Allergies No known active allergies Medications atorvastatin (LIPITOR) 80 MG tablet 11/07/2021 Active lisinopril (PRINIVIL,ZESTRI L) 10 MG tablet 11/07/2021 Act vega erythromycin (ROMYCIN) ophthalmic ointment Place 0.5 inches into the left eye every 6 (six) hours. 3.5 g 11/09/2021 Active Active Problems No known active problems Social History Tobacco Use Types Packs/Day Years Used Date Smoking Tobacco: Every Day Cigarettes Smokeless Tobacco: Never Alcohol Use Standard Drinks/Week Comments Not Currently 0 (1 standard drink = 0.6 oz pur e alcohol) Education Answer Date Recorded Are you interested in more education? Not on petr e 12/25/2022 Are you concerned about learning? Not on file 12/25/2022 No 12/25/2022 No 12/25/2022 Digital Access Answer Date Recorded No 01/23/2023 No 01/23/2023 No 01/23/2023 Reliable internet access at home? Not on file 01/23/2023 Device with a working camera? Not on file Sex and Gender Information Value Date Recorded Sex Assigned at Not on file Legal Sex Male 10:47 AM EDT Gender Identity Not on file Sexual Orientation Not on file Last Filed Vital Signs Vital Sign Reading Time Taken Comments Blood Pressure 130/72 11/09/2021 12:15 PM EDT Pulse 62 11/09/2021 12:15 PM EDT Temperature 36.6 C (97.8 F) 11/09/2021 12:15 PM EDT Respiratory Rate 16 11/09/2021 12:15 PM EDT Oxygen Saturation 96% 11/09/2021 12:15 PM EDT Inhaled Oxygen Concentration - - Weight 90.7 kg (200 lb) 11/09/2021 12:15 PM EDT Height 180.3 cm (5' 11 ) 11/09/2021 12:15 PM EDT Body Mass Index 27.89 11/09/2021 12:15 PM EDT Plan of Treatment Health Maintenance Due Date Last Done Comments CREATININE LEVEL 1965 LIPID PANEL 1965 POTASSIUM LEVEL 1965 DEPRESSION SCREENING 1977 SMOKING Hx and SMOKELESS TOBACCO SCREENING 1978 HEPATITIS C SCREENING 1983 HIV ONE-TIME SCREENING (18-6 5 YEARS) 1983 PNEUMOCOCCAL VACCINES (50+ years) (1 of 2 - PCV) 02/17/1984 COLOGUARD 2010 COLONOSCOPY 2010 COLORECTAL CANCER SCREENING 2010 FIT TEST 2010 FOBT 2010 SIGMOIDOSCOPY 2010 VIRTUAL COLONOSCOPY 2010 ZOSTER VACCINES (1 of 2) 2015 INFLUENZA VACCINE (#1) 2025 COVID-19 VACCINE (3 - 2024-2 6 season) 2025 04/23/2021, 04/02/2021 Adult Td,Tdap Booster 09/30/2025 09/30/2015 RSV VACCINE (1 - 1-dose 75+ series) 02/17/2040 HEPATITIS A VACCINES Aged Out No long er eligible based on patient's age to complete this topic HIB VACCINES Aged Out No longer eligi ble based on patient's age to complete this topic MENINGOCOCCAL VACCINES (ACWY) Aged Out No longer eligible based on patient's age to complete this topic MENINGOCOCCAL VACCINES (B) Aged Out N o longer eligible based on patient's age to complete this topic Medical Devices Not on file Insurance HMO POS HMO POS HMO POS HMO POS HMO POS HMO POS HMO POS HMO POS HMO POS Care Teams Scientific Editor Relationship Specialty Start Date End Date Christy Sierra MD [address] [place] [address] PCP - General 11/09/21 Additional Source Comments The information contained in this document represents components of the legal health record. It is not the complete legal health record.[facility]
--- OUTSIDE RECORDS SUMMARY | 2025-06-13 16:57 | XMS_ITS ---
[facility] Name [facility] Organization Unknown Care Team Organization Name Specialty Phone Email Start Date End [facility] 07/06/2022 04/16/2024
--- OUTSIDE RECORDS SUMMARY | 2025-06-13 16:57 | XMS_ITS | Clinical Summary ---
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 90 tablet 1 04/15/2025 Active lisinopriL (PRINIVIL,ZESTRI L) 20 mg tablet Take 1 tablet (20 mg total) by mouth 1 (one) time each day. 90 tablet 1 04/15/2025 Active Active Problems Problem Noted Date Diagnosed Date Essential hypertension 02/26/2019 Hyperglycemia 04/06/2017 Obesity (BMI 30-39.9) 04/06/2017 Overweight 10/06/2016 Dysplastic nevus 02/19/2016 Overview (07/12/2024): Dysplastic nevus 02/11 back (mild atypia) Old SD (myocardial infarction) 08/24/2005 Overview (07/12/2024): 2004 / stented 02/03 CUATE to LAD diagonal Hyperlipidemia 08/24/2005 Tobacco use disorder 08/24/2005 Overview (07/12/2024): Stopped 01/2016 Known medical problems 08/24/2005 Overview (07/12/2024): some myalgias and elevated CPK with Lipitor IMO update Encounters Date Type Department Care Team Description 04/15/2025 2:15 PM EDT Office Visit Adult Medicine [address] [phone] David Pena NP Essential hypertension (Primary Dx); Hyperglycemia; Pure hypercholesterolemia; Encounter for screening for cardiovascular disorders; Encounter for screening for malignant neoplasm of prostate from Last 3 Months Immunizations Immunization Administration Dates Next Due Tdap Tetanus diptheria [...] unspecified 08/24/2005 DX:Myalgia and myositis, unspecified Old SD (myocardial infarction) 08/24/2005 D X:Old SD (myocardial infarction) Hyperlipidemia 08/24/2005 DX:Hyperlipidemi a Obesity (BMI 30-39.9) 04/06/2017 DX:Obesity (BMI 30-39.9) Hyperglycemia 04/06/2017 DX:Hyperglycemia Family History Medical History Relation Name Comments Heart attack Brother age 56 Other: lymphoma Father age 68 Heart attack Mother age 56 / RA Relation Name Status Comments Brother Father Mother Social History Tobacco Use Types Packs/Day Years Used Date Smoking Tobacco: Former Cigarettes Smokeless Tobacco: Never Tobacco Cessation:Counseling Given: Not Answered Alcohol Use Standard Drinks/Week Comments No 0 (1 standard drink = 0.6 oz pur e alcohol) Housing Instability Answer Date Recorde d Are you worried that in the next 2 months you may not have stable housing? Patient declined 04/14/2025 Food Access & Nutrition Answer Date Rec orded Do you have access to a vari ety of food including fruits and vegetables? Patient declined 04/14/2025 Health Literacy Answer Date Recorded How often do you need to hav e someone help you when you read instructions, pamphlets, or other written material from your doctor or pharmacy? Patient declined 04/14/2025 Caregiver: How often do you need to have someone help you when you read instructions, pamphlets, or other written material from your doctor or pharmacy? Not on file 025 Financial Risk Answer Date Recorded How hard is it for you to pa y for the very basics like food, housing, medical care, and air conditioning / heating? Patient declined 04/14/2025 Transportation Answer Date Recorded Has the lack of transportati on kept you from meetings, work, or from getting things needed for daily living? Patient declined 04/14/2025 Has the lack of transportati on kept you from medical appointments or from getting medications? Patient declined 04/14/2025 Social Isolation Answer Date Recorded How often do you feel lonely or isolated from those around you? Patient declined 04/14/2025 Food Risk Answer Date Recorded Within the past 12 months we worried whether our food would run out before we got money to buy more. Never true 025 Within the past 12 months th e food we bought just didn't last and we didn't have money to get more. Patient declined 03/29 Dependent Care Answer Date Recorded Do you need help finding or paying for care for your loved ones. For example, child care provider or elderly care for an older adult? Patient declined 04/14/2025 Education Answer Date Recorded Do you think completing more education or training, like finishing a GED, going to college, or learning a trade, would be helpful for you? Patient declined 04/14/2025 Employment and Income Answer Date Recor ded During the last four weeks, have you been actively looking for work? Patient declined 04/14/2025 Living Situation Answer Date Recorded What is your living situation? Unrecognized valu e 04/14/2025 Sex and Gender Information Value Date Recorded Sex Assigned at Not on file Legal Sex Male 3:16 AM EST Gender Identity Not on file Sexual Orientation Not on file Obstetrics History Last Filed Vital Signs Vital Sign Reading Time Taken Comments Blood Pressure 126/60 04/15/2025 2:24 PM EDT Pulse 54 04/15/2025 2:24 PM EDT Temperature 36.4 C (97.5 F) 04/15/2025 2:24 PM EDT Respiratory Rate 14 04/15/2025 2:24 PM EDT Oxygen Saturation - - Inhaled Oxygen Concentration - - Weight 94.8 kg (209 lb) 04/15/2025 2:24 PM EDT Height 180.3 cm (5' 11 ) 04/15/2025 2:24 PM EDT Body Mass Index 29.15 04/15/2025 2:24 PM EDT Plan of Treatment Upcoming Encounters Date Type Department Care Team (Late st Contact Info) Description 10/16/2025 3:30 PM EST Office Visit Adult Medicine [facility] [address] [place] [address] Christy Sierra MD [address] [place] [address] Health Maintenance Due Date Last Done Comments Influenza Vaccine (#1) 2025 DTaP,Tdap,and Td Vaccines (2 - Td or Tdap) 09/30/2025 09/30/2015 Social Influencers of Health Screening 04/14/2026 04/14/2025 Hypertension/CHF/CAD Annual BMP Blood Test 05/23/2026 05/23/2025, 07/27/2024, 08/04/2023 Colorectal Cancer Screening: Colonoscopy 11/24/2026 11/24/2016 Cholesterol Screening (Lipid Panel) 05/23/2030 05/23/2025, 08/04/2023 RSV Immunization Adult Patients (1 - 1-dose 75+ series) 02/17/2040 Hepatitis C Screening Completed 11/07/2015 COVID-19 Vaccine Discontinued 04/23/2021, 04/02/2021 MMR Vaccines Aged Out 10/28/2021 No longer eligi ble based on patient's age to complete this topic Depression Screening Completed 04/14/2025 HIB Vaccines Aged Out No longer eligi ble based on patient's age to complete this topic HIV Screening Discontinued HPV Vaccines Aged Out No longer eligi ble based on patient's age to complete this topic Hepatitis A Vaccines Aged Out No long er eligible based on patient's age to complete this topic Hepatitis B Vaccines Aged Out No long er eligible [...] on patient's age to complete this topic Pneumococcal Vaccine: 50+ Years Discontinued RSV Immunization Patients Under 20 months Aged Out No longer eligible based on patient's age to complete this topic Varicella Vaccines Aged Out No longer eligible based on patient's age to complete this topic Zoster Vaccines Discontinued Procedures Procedure Name Priority Date/Time Associated Diagnosis Comments COMPREHENSIVE METABOLIC PANEL Routine 05/23/2025 8:03 AM EDT Essential hypertension Pure hypercholesterolemia Encounter for screening for cardiovascular disorders Encounter for screening for malignant neoplasm of prostate LIPID PANEL WITH REFLEX TO DIRECT LDL Routine 05/23/2025 8:03 AM EDT Encounter for screening for cardiovascular disorders THYROID STIMULATING HORMONE WITH REFLEX TO FREE T4 AND FREE T3 Routine 05/23/2025 8:03 AM EDT Essential hypertension Pure hypercholesterolemia Encounter for screening for cardiovascular disorders Encounter for screening for malignant neoplasm of prostate PROSTATE SPECIFIC ANTIGEN SCREEN Routine 05/23/2025 8:03 AM EDT Encounter for screening for malignant neoplasm of prostate HEMOGLOBIN A1C Routine 05/23/2025 8:03 AM EDT Essential hypertension Hyperglycemia Pure hypercholesterolemia COLONOSCOPY Routine 11/24/2016 HEPATITIS C SCREENING Routine 11/07/2015 from Last 3 Months or Most Recently Relevant to Health Maintenance Results * Prostate specific antigen screen (05/23/2025 8:03 AM EDT) PSA 0.20 0.00 - 4.00 ng/mL LAB CHEMISTRY METHOD 05/23/2025 4:07 PM EDT [facility] Blood Venous blood specimen / Unknown Venipuncture / Unknown 05/23/2025 8:03 AM EDT 05/23/2025 8:07 AM EDT Narrative [facility] - 05/23/2025 4:07 PM EDT The Siemens Advia Centaur Chemiluminescent Immunoassay is used. Results obtained with different assay methods or kits cannot be used interchangeably. Results cannot be interpreted as absolute evidence of the presence or absence of malignant disease. David Pena HUMAN RESOURCES DESIGNATE LAB BLOOD ORDERABLES Final R esult Performing Organization Address City/[facility]/ZIP Co de Phone Number [facility] [address] [place] [address], [place] [phone] * Thyroid stimulating hormone with reflex to free t4 and free t3 (05/23/2025 8:03 AM EDT) [facility] TSH 2.17 0.40 - 4.00 mcIU/mL LAB CHEMISTRY METHOD 05/23/2025 5:52 PM EDT [facility] Blood Venous blood specimen / Unknown Venipuncture / Unknown 05/23/2025 8:03 AM EDT 05/23/2025 8:07 AM EDT David Pena HUMAN RESOURCES DESIGNATE LAB BLOOD ORDERABLES Final R esult Performing Organization Address [facility]/ZIP Co de Phone Number [facility] [address] [place] [address], [place] [phone] * Lipid panel with reflex to direct LDL (05/23/2025 8:03 AM EDT) [facility] Signature Cholesterol 121 0 - 200 mg/dL LAB CHEMISTRY METHOD 05/23/2025 6:50 PM EDT [facility] Triglycerides 61 0 - 150 mg/dL LAB CHEMISTRY METHOD 05/23/2025 6:50 PM EDT [facility] HDL 58 >=40 mg/dL LAB CHEMISTRY METHOD 05/23/2025 6:50 PM EDT [facility] LDL Calculated 51 0 - 100 mg/dL LAB CHEMISTRY METHOD 05/23/2025 6:50 PM EDT [facility] Comment:Estimated LDL Calcul ated using equation: Total cholesterol - HDL cholesterol - (Triglycerides/5) VLDL Cholesterol Drake 12.2 mg/dL LAB CHEMISTRY METHOD 05/23/2025 6:50 PM EDT [facility] Non HDL Chol. (LDL+VLDL) 63 <145 mg/dL LAB CHEMISTRY METHOD 05/23/2025 6:50 PM EDT [facility] Chol/HDL Ratio 2.1 0.0 - 4.4 LAB CHEMISTRY METHOD 05/23/2025 6:50 PM EDT [facility] Blood Venous blood specimen / Unknown Venipuncture / Unknown 05/23/2025 8:03 AM EDT 05/23/2025 8:07 AM EDT David Pena HUMAN RESOURCES DESIGNATE LAB BLOOD ORDERABLES Final R esult Performing Organization Address City/[facility]/ZIP Co de Phone Number [facility] [address] [place] [address], [place] [phone] * Hemoglobin A1c (05/23/2025 8:03 AM EDT) Hemoglobin A1C 6.1 <6.5 % LAB CHEMISTRY METHOD 05/23/2025 11:29 AM EDT [facility] Mean Bld Glu Estim. 128 mg/dL LAB CHEMISTRY METHOD 05/23/2025 11:29 AM EDT [facility] Blood Venous blood specimen / Unknown Venipuncture / Unknown 05/23/2025 8:03 AM EDT 05/23/2025 8:07 AM EDT David Pena HUMAN RESOURCES DESIGNATE LAB BLOOD ORDERABLES Final R esult Performing Organization Address City/[facility]/ZIP Co de Phone Number [facility] [address] [place] [address], [place] [phone] * Comprehensive metabolic panel (05/23/2025 8:03 AM EDT) Sodium 142 133 - 145 mmol/L LAB CHEMISTRY METHOD 05/23/2025 6:50 PM EDT [facility] Potassium 4.5 3.5 - 5.5 mmol/L LAB CHEMISTRY METHOD 05/23/2025 6:[address] [facility] Chloride 107 96 - 110 mmol/L LAB CHEMISTRY METHOD 05/23/2025 6:[address] [facility] CO2 27 21 - 32 mmol/L LAB CHEMISTRY METHOD 05/23/2025 6:[address] [facility] Anion Gap 8 3 - 11 LAB CHEMISTRY METHOD 05/23/2025 6:[address] [facility] Glucose 96 70 - 100 mg/dL LAB CHEMISTRY METHOD 05/23/2025 6:[address] [facility] BUN 21 5 - 25 mg/dL LAB CHEMISTRY METHOD 05/23/2025 6:[address] [facility] Creatinine 1.12 0.70 - 1.30 mg/dL LAB CHEMISTRY METHOD 05/23/2025 6:[address] [facility] eGFR 75 >=60 mL/min/1. 73m2 LAB CHEMISTRY METHOD 05/23/2025 6:[address] [facility] Comment:Calculation based on the Chronic Kidney Disease Epidemiology Collaboration (CKD-EPI) equation refit without adjustment for race. BUN/Creatinine Ratio 18.8 LAB CHEMISTRY METHOD 05/23/2025 6:[address] [facility] Calcium 8.9 8.5 - 10.5 mg/dL LAB CHEMISTRY METHOD 05/23/2025 6:[address] [facility] AST (SGOT) 29 10 - 42 unit/L LAB CHEMISTRY METHOD 05/23/2025 6:[address] [facility] ALT (SGPT) 41 10 - 60 unit/L LAB CHEMISTRY METHOD 05/23/2025 6:[address] [facility] Alkaline Phosphatase 104 42 - 121 unit/L LAB CHEMISTRY METHOD 05/23/2025 6:[address] [facility] Total Protein 6.5 6.0 - 8.0 g/dL LAB CHEMISTRY METHOD 05/23/2025 6:50 PM EDT [facility] Albumin 4.0 3.2 - 5.0 g/dL LAB CHEMISTRY METHOD 05/23/2025 6:50 PM EDT [facility] Total Bilirubin 0.5 0.0 - 1.4 mg/dL LAB CHEMISTRY METHOD 05/23/2025 6:50 PM EDT [facility] Blood Venous blood specimen / Unknown Venipuncture / Unknown 05/23/2025 8:03 AM EDT 05/23/2025 8:07 AM EDT David Pena NP LAB BLOOD ORDERABLES Final R esult [facility] [address] [place] [address], * Colonoscopy (11/24/2016) Colonoscopy no interpretation , abstracted Anatomical Region Laterality Modality Other Historical Provider HEALTH MAINTENANCE Final Result * Hepatitis C Screening (11/07/2015) Hepatitis C Screening abstracted Historical Provider HEALTH MAINTENANCE Final Result from Last 3 Months or Most Recently Relevant to Health Maintenance Insurance [facility] Care Teams Curb Machine Operator Relationship Specialty Start Date End Date Christy Sierra MD [address] [place] [address] PCP - General Internal Medicine 06/02/15
== END 2025-06-13 13:51 | disposition home or self-care (01) ==
LOC: HO.HCS 13:30
PROVIDERS: PCP Internal Medicine; Visit Provider Internal Medicine
DX: I25.10 Atherosclerotic heart disease of native coronary artery without angina pectoris (principal); I10 Essential (primary) hypertension; I49.3 Ventricular premature depolarization
CPT/HCPCS: 99214